=== PATIENT | male | born 1935 | race Caucasian/White ===

== ENCOUNTER 2016-10-21 08:24 | Outpatient (CLI) | payer MEDICARE, OTHER ==
[~2016-10-21] VITALS: Ht 177.8 cm; Wt 85.9 kg
--- NOTE | ~2016-10-21 | HEMODYNAMI ---
PATIENT:AARON AGRAWAL MEDICAL RECORD: [id number] : 35 LOCATION:D.CAT ADMISSION DATE: 10/21/16 Generatedon:10/21/201610:34 Patient name: AARON AGRAWAL Patient #: [id number] : 1935 Date of study: 10/21/2016 Page: Of Hemodynamic Procedure Report Patient Data Patient Demographics Procedure consent was obtained First Name: AARON Gender: Male Last Name: TANJA : 1935 [facility] Initial: R Age: 81 year(s) Patient #: [id number] Race: SSN: [id number] Additional ID: [id number] Contact details [address]: [address] [place] [address] State: [place] City: [place] Zip code: [address] Past Medical History Allergies Allergen Reaction Date Comments Reported Demerol 10/21/2016 Admission Admission Data Admission Date: 10/21/2016 Admission Time: 8:24 Arrival Date: 10/21/2016 Arrival Time: 10:30 Admit Source: Other Insurance Payor: Medicare Height (in.): 69 BSA: 2.06 (m2) Height (cm.): 175.26 BMI: 29.39 (kg/m2) Weight (lbs.): 199 Weight (kg.): 90.26 Lab Results Lab Result Date: 10/21/2016 Lab Result Time: 0:00 Biochemistry Name Units Result Min Max BUN mg/dl 17 --(---*)-- 7 18 Creatinine mg/dl 0.8 --(-*--)-- 0.6 1.3 CBC Name Units Result Min Max Hemoglobin g/dl 13.8 --(*---)-- 13.5 17.5 Procedure Procedure Types Cath Procedure Diagnostic Procedure LHC LHC w/Coronaries Miscellaneous Procedures Moderate Sedation up to 30 minutes Procedure Description Procedure Date Procedure Date: 10/21/2016 Procedure Start Time: 10:25 Procedure End Time: 10:33 Procedure Staff Name Function Liban Yarbrough MD Performing Physician Any Stark RT Scrub Janice Awan RN Nurse Cara Herrera RT Monitor Sumit Rutledge RT Desk Manager Procedure Data Cath Procedure Fluoroscopy Diagnostic fluoroscopy Total fluoroscopy Time: 1.9 time: 1.9 min min Diagnostic fluoroscopy Total fluoroscopy dose: 484 dose: 484 mGy mGy Contrast Material Contrast Material Type Amount (ml) Isovue 370 79 Entry Location Entry Primary Successful Side Size Upsize Upsize Entry Closure Succes sful Closure Location (Fr) 1 (Fr) 2 (Fr) Remarks Device Remarks Femoral Right 5 Fr Vascade artery Closure System Estimated blood loss: 5 ml Diagnostic catheters Device Type Used For End Catheter Placement Cordis Infinity 5Fr LV Angiography Pigtail catheter Cordis Infinity 5Fr AL2 Left Coronary catheter Angiography Cordis Infinity 5Fr 3DRC Right Coronary catheter Angiography Cordis Infinity 5Fr AR 2 Right Coronary MOD catheter Angiography Procedure Complications No complications Procedure Medications Medication Administration Route Dosage Oxygen NC 2 l/min Lidocaine 2% added to field 20 Heparin Flush Bag added to field 2 bags (1000units/500ml NS) 0.9% NaCl I.V. 100 ml/hr Versed I.V. 1 mg Fentanyl I.V. 50 mcg Versed I.V. 1 mg Fentanyl I.V. 50 mcg Hemodynamics Rest BSA: 2.06 (m2) HGB: 13.8 (g/dl) O2 Consumption: Estimated: 228.37 (ml/min) O2 Co nsumption indexed: Estimated:110.86 (ml/min/m) Heart Rate: 62 (bpm) Pressure Samples Time Site Value (mmHg) Purpose Heart Use Rate(bpm) 10:26 LV 47/14,16 Snapshot 85 Snapshots Pre Cath Intra NCS Post Cath Vital Signs Time Heart Resp SPO2 etCO2 [id number] NIBP (mmHg) Rhythm Pain Sedation Rate (ipm) (%) (mmHg) (mmHg) Status Level (bpm) 9:55:47 63 16 99 0 0 140/76(97) Paced 0 (11) 10(A) , No pain 10:00:05 63 16 100 0 0 134/76(107) Paced 0 (11) 10(A) , No pain 10:04:23 60 17 98 0 0 132/66(86) Paced 0 (11) 10(A) , No pain 10:08:43 59 17 98 0 0 131/60(101) Paced 0 (11) 10(A) , No pain 10:12:55 60 17 98 0 0 125/70(83) Paced 0 (11) 10(A) , No pain 10:17:11 60 16 97 0 0 141/69(82) Paced 0 (11) 10(A) , No pain 10:21:19 60 16 93 0 0 119/76(99) Paced 0 (11) 9(A) , No pain 10:25:29 60 16 94 0 0 125/75(107) Paced 0 (11) 9(A) , No pain 10:29:43 74 15 94 0 0 140/73(98) Paced 0 (11) 9(A) , No pain 10:33:57 70 16 95 0 0 127/79(99) Paced 0 (11) 10(A) , No pain Medications Time Medication Route Dose Verified Delivered Reason Notes Effe ctiveness by by 9:56:57 Oxygen NC 2 Liban Buffie used for l/min Zenon Awan RN procedure 10:06:41 Lidocaine 2% added 20ml Liban Liban for local to vial Zenon Yarbrough MD anesthetic field 10:06:50 Heparin Flush added 2 Liban Liban used for Bag to bags Zenon Yarbrough MD procedure (1000units/500ml field NS) 10:06:59 0.9% NaCl I.V. 100 Liban Buffie Per ml/hr Zenon Awan RN physician 10:16:12 Versed I.V. 1 mg Liban Buffie for Zenon Awan RN sedation 10:16:17 Fentanyl I.V. 50 Liban Buffie for mcg Zenon Awan RN sedation 10:26:00 Versed I.V. 1 mg Liban Buffie for Zenon Awan RN sedation 10:26:04 Fentanyl I.V. 50 Liban Buffie for mcg Zenon Awan RN sedation Procedure Log Time Note 9:40:22 Sumit Rutledge RT(R) sent for patient. Start room use. 9:44:28 Time tracking: Regular hours 9:44:33 Plan of Care:Hemodynamics will remain stable., Cardiac rhythm will remain stable., Comfort level will be maintained., Respiratory function will remain adequate., Patient/ family verbilizes understanding of procedure., Procedure tolerated without complication., Recovers from procedure without complications.. 9:44:39 Patient received from Pre/Post Procedure Room to CCL 1 Alert and oriented. Tansferred to table in Supine position. 9:44:40 Warm blankets applied, and aditya hugger turned on for patient comfort. 9:44:40 Correct patient and procedure confirmed by team. 9:44:41 Signed procedure consent form obtained from patient. 9:44:42 ECG and BP/O2 sat monitors applied to patient. 9:44:43 Full Disclosure recording started 9:54:40 Vital chart was started 9:56:57 Oxygen 2 l/min NC was given by Janice Awan RN; used for procedure; 9:57:03 Baseline sample Acquired. 9:57:11 Rhythm: sinus rhythm 9:57:36 H&P Date Dictated: 10/19/2016 Within 30 days and on chart., H&P Addendum completed by physician on day of procedure. (MUST COMPLETE FOR ALL OUTPATIENTS). 9:57:37 Pre-procedure instructions explained to patient. 9:57:42 Pre-op teaching completed and patient verbalized understanding. 9:57:44 Family in waiting room. 9:57:51 Patient NPO since Midnight. 9:57:58 Patient allergic to Demerol 9:58:03 Is the patient allergic to Iodine/contrast media? No. 9:58:05 Was the patient premedicated? No 9:58:09 Is patient on blood thinner?Yes 9:58:13 ACC The patient was administered the following blood thiners within the last 24 hours: ACCPlavix 9:58:15 Patient diabetic? No. 9:58:18 Previous problem with sedation/anesthesia? No ? 9:58:22 Snore? Yes 9:58:23 Sleep apnea? No 9:58:24 Deviated septum? No 9:58:27 Opens mouth fully? Yes 9:58:28 Sticks out tongue? Yes 9:58:31 Airway obstruction? No ? 9:58:34 Dentures? No ? 9:58:38 Pre procedure: right dorsailis pedis pulse 1+ Palpable, but thready & weak; easily obliterated 9:58:42 Patient pain scale 0/10 ?. 9:58:49 IV patent on arrival in left forearm with 0.9% NaCl at O. 9:59:13 Lab Result : Creatinine 0.8 mg/dl 9:59:13 Lab Result : BUN 17 mg/dl 9:59:13 Lab Result : Hemoglobin 13.8 g/dl 9:59:17 Lab results completed and on chart. 9:59:21 Right groin area was prepped with chlora-prep and draped in sterile fashion 9:59:21 Alarms reviewed by R. N. 9:59:22 Sharps counted by scrub and verified by R.N. 10:03:21 Admit Source: Other 10:03:24 Patient Height : 69 inches 10:03:42 Patient Weight : 199 lbs 10:03:43 Insurance Payor : Medicare 10:03:47 Arrival Date: 10/21/2016 10:30:00 AM 10:06:12 Zero performed for pressure channel P1 10:06:19 Zero performed for pressure channel P1 10:06:41 Lidocaine 2% 20ml vial added to field was given by Liban Yarbrough MD; for local anesthetic; 10:06:50 Heparin Flush Bag (1000units/500ml NS) 2 bags added to field was given by Liban Yarbrough MD; used for procedure; 10:06:59 0.9% NaCl 100 ml/hr I.V. was given by Janice Awan RN; Per physician; 10:07:08 Use device set Femoral Dx 10:07:09 Acist Syringe opened to sterile field. 10:07:10 Bag Decanter opened to sterile field. 10:07:11 Cardinal Cath Pack opened to sterile field. 10:07:12 Terumo 5Fr [place] Sheath opened to sterile field. 10:07:13 St Tariq 260cm J .035 wire opened to sterile field. 10:07:16 Acist Hand Control opened to sterile field. 10:07:17 Acist Manifold opened to sterile field. 10:07:20 Tegaderm 4 x 4 opened to sterile field. 10:13:54 Physician arrived 10:13:55 --------ALL STOP TIME OUT------ 10:13:57 Final Timeout: patient, procedure, and site verified with staff and physician. All members of the team are in agreement. 10:13:59 Right groin site verified by team. 10:14:01 Physical assessment completed. ASA score P 2 - A patient with mild systemic disease as per Liban Yarbrough MD. 10:14:05 Sedation plan: IV Moderate Sedation Versed, Fentanyl 10:16:12 Versed 1 mg I.V. was given by Janice Awan RN; for sedation; 10:16:17 Fentanyl 50 mcg I.V. was given by Janice Awan RN; for sedation; 10:25:21 Procedure started. 10:25:25 Local anesthetic to right femoral artery with Lidocaine 2% by Liban Yarbrough MD.INITIAL ACCESS ONLY 10:25:37 A 5 Fr sheath was inserted into the Right Femoral artery 10:26:00 Versed 1 mg I.V. was given by Janice Awan RN; for sedation; 10:26:04 Fentanyl 50 mcg I.V. was given by Janice Awan RN; for sedation; 10:26:04 A Cordis Infinity 5Fr Pigtail catheter was advanced over the wire and used for LV Angiography. 10:26:22 LV hemodynamics recorded. 10:26:23 LV gram done using ROCA 10:26:27 Injector settings: Ml/sec: 5, Volume: 15, 10:26:35 EF : 25 % 10:26:37 Catheter removed. 10:26:44 A Cordis Infinity 5Fr AL2 catheter was advanced over the wire and used for Left Coronary Angiography. 10:27:40 LCA angiography performed. 10:27:43 Injector settings: Ml/sec: 3, Volume: 6, 10:28:38 Catheter removed. 10:28:44 A Cordis Infinity 5Fr 3DRC catheter was advanced over the wire and used for Right Coronary Angiography. 10:29:36 Catheter removed. 10:29:49 A Cordis Infinity 5Fr AR 2 MOD catheter was advanced over the wire and used for Right Coronary Angiography. 10:30:43 RCA angiography performed. 10:30:47 Injector settings: Ml/sec: 3, Volume: 6, 10:30:50 Catheter removed. 10:31:16 Vascade 5Fr Closure Device opened to sterile field. 10:31:53 Sheath removed intact; hemostasis achieved with Vascade Closure System to the Right Femoral artery. 10:31:55 Procedure ended.(Physican Out) 10:32:13 Fluoroscopy time 01.90 minutes. 10:32:18 Fluoroscopy dose: 484 mGy 10:32:18 Flurop Dose total: 484 10:32:21 Contrast amount:Isovue 370 79ml. 10:32:23 Sharps counted by scrub and verified by R.N. 10:32:24 Insertion/operative site no bleeding no hematoma. 10:32:27 Post-op/insertion site Right Femoral artery dressed using a 4 x 4 and Tegaderm. 10:32:30 Post right femoral artery:stable 10:32:31 Post Procedure Pulses reassessed and unchanged 10:32:34 Post procedure rhythm: unchanged. 10:32:37 Estimated blood loss: 5 ml 10:32:38 Post procedure instruction explained to patient.Patient verbalizes understanding. 10:32:39 Patient needs reinforcement of post procedure teaching. 10:33:04 Procedure type changed to Cath procedure, Diagnostic procedure, LHC, LHC w/Coronaries, Miscellaneous Procedures, Moderate Sedation up to 30 minutes 10:33:06 Procedure and supply charges have been captured, reviewed, submitted and are correct. 10:33:10 Procedure Complication : No complications 10:33:13 Vital chart was stopped 10:33:13 See physician's report for complete and final results. 10:33:16 Report given to Outpatients. 10:33:21 Patient transfered to Outpatients with Stretcher. 10:33:23 Procedure ended. 10:33:23 Full Disclosure recording stopped 10:33:48 End room use (Document Last) Device Usage Item Manufacture Quantity Catalog Number Hospital Part Current Minimal Lot# / Name Charge Number Stock Stock Serial# Code Acist Acist 1 [id number] 262923 [id number] 20 Syringe Medical Systems Inc Bag Microtek 1 2001S 735489 03010 918639 5 Decanter Medical Inc. Cardinal Cardinal 1 [id number] 967252 50490 328804 5 Cath Health Pack Terumo Terumo 1 [id number] 999285 842472 927202 [address] St Tariq 1 [id number] 671764 094431 224306 30 260cm J .035 wire Acist Acist 1 83286 789159 254105 530887 5 Hand Medical Control Systems Inc Acist Acist 1 23310 124174 393288 710463 5 Manifold Medical Systems Inc Tegaderm 3M 1 1626W 696354 796669 736225 5 4 x 4 Cordis Cardinal 1 [id number] 003597 528425 653774 5 Infinity Health 5Fr Pigtail catheter Cordis Cardinal 1 [id number] 134633 002193 634331 15 Infinity Health 5Fr AL2 catheter Cordis Cardinal 1 [id number] 115819 303738 288271 9 [facility] 5Fr 3DRC catheter Cordis Cardinal 1 [id number] 711610 543143 875576 20 [facility] 5Fr AR 2 MOD catheter Vascade Cardiva 1 [id number] 946309 50477 070437 10 5Fr Medical, Closure Inc. Device Signature Audit Clements Stage Time Signature Unsigned Intra-Procedure 10/21/2016 Cara Herrera 10:34:54 AM RT(R) Signatures Monitor : Cara Herrera RT Signature : Date : Time : [place] [id number] [place] [address]
[~2016-10-21 08:24] MED LIST: ALEVE220 MG PO; BAYER CHEWABLE81 MG PO; FLOMAX0.4 MG PO; GARLIC1 CAP PO; MULTI-DAY VITAM1 TAB PO; PLAVIX75 MG PO; PROSCAR5 MG PO; SAW PALMETTO450 MG PO; VITAMIN E400 UNI2 PO; ZOCOR20 MG PO
[2016-10-21] MEDS ORDERED: PLAVIX75 MG PO (08:52)
[2016-10-21 09:01] VITALS: BP 135/66; Ht 177.8 cm; Wt 85.9 kg
[2016-10-21 09:10] LABS: BASOPHILS 0.2 % (0.0-2.0); EOSINOPHILS 1.6 % (0-7); HEMATOCRIT 41.5 % (42.0-54.0); HEMOGLOBIN 13.8 g/dL (13.5-17.5); IMMATURE GRANULOCYTES 0.2 % (0-5); LYMPHOCYTES 21.6 % (15-50); MCH 32.6 pg (26.0-34.0); MCHC 33.3 g/dL (31.0-37.0); MCV 98.1 fL (80.0-100.0); MEAN PLATELET VOLUME 9.5 fL (7.4-10.4); MONOCYTES 12.5 % (2-11); NEUTROPHILS 63.9 % (40-80); PLATELET COUNT 218 10x3/uL (130-400); RBC 4.23 10x6/uL (4.20-6.10); RDW 14.2 % (11.5-14.5); WBC 8.7 10x3/uL (4.8-10.8)
[2016-10-21 09:24] LABS: CALC OSMOLALITY 284 mosm/kg (275-300); CALCIUM 9.3 mg/dL (8.5-10.1); CHLORIDE - SERUM 104 mmol/L (98-107); CREATININE - SERUM 0.8 mg/dL (0.6-1.3); GLUCOSE 95 mg/dL (74-106); POTASSIUM - SERUM 4.2 mmol/L (3.5-5.1); SODIUM 142 mmol/L (136-145); UREA NITROGEN 17 mg/dL (7-18); eGFR NON AFRICAN AMERICAN > 90 mL/min (90-120)
--- NOTE | 2016-10-21 11:00 | NUR ---
1100 HR PACED 60 BP 125/64 CHEST PAIN DENIED. 5 FR VASCADE R/GROIN CDI NO BLEEDING NO HEMATOMA NOTED TOLERATING ORAL FLUIDS WITH NAUSEA DENIED. INSTRUCTED PATIENT TO KEEP HEAD FLAT ON PILLOW WITH RLE STRAIGHT
--- NOTE | 2016-10-21 11:34 | NUR ---
VSS WITH 5 FR VASCADE R/GROIN CDI NO BLEEDING NO HEMATOMA NOTED. INSTRUCTED PATIENT TO KEEP RLE STRAIGHT WITH HEAD FLAT ON PILLOW. DR MARTINEZ AT BEDSIDE
--- NOTE | 2016-10-21 12:05 | NUR ---
HOB ELEVATED, EATING TURKEY TRAY. R GROIN
--- NOTE | 2016-10-21 12:19 | OP ---
PATIENT NAME: AARON AGRAWAL MEDICAL RECORD: [id number] :35 LOCATION:D.CAT ADMISSION DATE: SURGEON: JENNIFFER MARTINEZ MD DATE OF OPERATION: 10/21/2016 PROCEDURES: 1. Left heart catheterization. 2. Selective coronary angiography. 3. Left ventriculogram. INDICATION: Cardiomyopathy, angina. PROCEDURE IN DETAIL: After informed consent was obtained and after detailed explanation of risks, benefits as well as alternative therapies, the patient elected to proceed with angiogram and heart catheterization. The right femoral area was prepped and draped in normal sterile fashion. The right femoral artery was cannulated via modified Seldinger technique with placement of 5-Yakut sheath. All catheters exchanged through this sheath. FINDINGS: Left ventriculogram was performed in the standard 30-degree ROCA view reveals global hypokinesis throughout all segments. Overall ejection fraction markedly reduced over at 25%. SELECTIVE CORONARY ANGIOGRAPHY: 1. Left main is with no significant angiographic disease. 2. Left anterior descending, left circumflex, and right coronary artery are smooth-walled vessels with no angiographic evidence of coronary artery disease. OVERALL IMPRESSION: 1. No angiographic evidence of coronary artery disease. 2. Nonischemic cardiomyopathy, ejection fraction 25%. TRANSINT:[id number] Voice Confirmation ID: [id number] DOCUMENT ID: [id number] JENNIFFER MARTINEZ MD at 1219 CC: [id number] DICTATION DATE: 10/21/16 1034 WET MILLING WHEEL OPERATOR: 10/21/16 1151 REG [facility] [address] [place] [address]
--- NOTE | 2016-10-21 12:25 | NUR ---
PIV REMOVED FROM LEFT ARM WITH DRESSING APPLIED. CHEST PAIN IS DENIED. 5 FR VASCADE R/GROIN CDI NO BLEEDING NO HEMATOMA NOTED PATIENT UP TO GET DRESSED FOR DISCHARGE HOME
[2016-10-21] MEDS ORDERED: COREG 3.1253.125 MG PO (12:33)
[2016-10-21] MEDS ORDERED: LISINOPRIL5 MG PO (12:33)
--- NOTE | 2016-10-21 12:43 | NUR ---
DISCHARGE INSTRUCTIONS GONE OVER WITH PATIENT AND FAMILY LEFT VIA WC TO [facility]ARKING FOR TRANSPORT HOME
== END 2016-10-21 12:49 | disposition home or self-care (01) ==
LOC: D.CATH 08:24
PROVIDERS: Internal Medicine Interventional Cardiology
DX: I42.8 Other cardiomyopathies (principal); I20.9 Angina pectoris, unspecified

== ENCOUNTER 2017-03-18 20:05 | Inpatient (IN) | payer MEDICARE, OTHER ==
[~2017-03-18] VITALS: Ht 177.8 cm; Wt 93.6 kg
[~2017-03-18 20:05] MED LIST changes: +COREG 3.1253.125 MG PO; +LISINOPRIL5 MG PO
[2017-03-18 21:04] LABS: BASOPHILS 0.1 % (0-2); EOSINOPHILS 0.8 % (0-7); HEMATOCRIT 44.5 % (42.0-54.0); HEMOGLOBIN 14.9 g/dL (13.5-17.5); IMMATURE GRANULOCYTES 0.9 % (0-5); LYMPHOCYTES 4.3 % (15-50); MCH 32.7 pg (26.0-34.0); MCHC 33.5 g/dL (31.0-37.0); MCV 97.6 fL (80.0-100.0); MEAN PLATELET VOLUME 9.9 fL (7.4-10.4); MONOCYTES 8.7 % (2-11); NEUTROPHILS 85.2 % (40-80); PLATELET COUNT 205 10x3/uL (130-400); RBC 4.56 10x6/uL (4.20-6.10); RDW 14.1 % (11.5-14.5)
[2017-03-18 21:17] LABS: ALBUMIN 4.4 g/dL (3.4-5.0); ALKALINE PHOSPHATASE 83 U/L (46-116); ALT (SGPT) 21 U/L (10-68); AMYLASE - SERUM 29 U/L (25-115); CALC OSMOLALITY 279 mosm/kg (275-300); CARBON DIOXIDE 29.6 mmol/L (21.0-32.0); CHLORIDE - SERUM 99 mmol/L (98-107); CREATININE - SERUM 0.9 mg/dL (0.6-1.3); GLUCOSE 158 mg/dL (74-106); LIPASE 142 U/L (73-393); PROTEIN - SERUM 8.4 g/dL (6.4-8.2); SODIUM 138 mmol/L (136-145); UREA NITROGEN 16 mg/dL (7-18); eGFR NON AFRICAN AMERICAN 86 mL/min (90-120)
[2017-03-19] MEDS ORDERED: FLOMAX0.4 MG PO (03:09)
[2017-03-19] MEDS ORDERED: BETAPACE 80 MG80 MG PO (03:15)
[2017-03-19] MEDS ORDERED: VITAMIN D31000 UNIT PO (03:17)
[2017-03-19] MEDS ORDERED: FLUTICASONE PRO16 GM NASAL (03:18)
[2017-03-19] MEDS ORDERED: PRIMROSE OIL PO (03:21)
[2017-03-19 03:26] VITALS: BP 124/75; BMI 27.0
--- NOTE | 2017-03-19 03:47 | NUR ---
ASSESSED PT AT THE TIME OF ARRIVAL FROM THE ER. PT IS ALERT AND ORIENTED, ABLE SAMARA VERBALIZE NEEDS. HE IS ALSO ABLE TO GET UP TO THE BATHROOM BUT WAS TOLD TO CALL US FOR CLAMPING OF NG TUBE WHICH IS TO LIS. AFTER ADMISSION ASSESSMENT HE WAS VISITED BY DR HEATH AND HOW HE IS RESTING QUIET WITH NO DISTRESS. BED IS LOW, RAILS UP X'S 1 WITH CALL LIGHT AT HAND AND 'S IN PLACE.
[2017-03-19 04:00] VITALS: BP 124/75
--- NOTE | 2017-03-19 07:30 | NUR ---
PATIENT ALERT IN HIGH CROSS POSITION. RESPIRATIONS EVEN AND UNLABORED. SIDE RAILS UP X2. BED IN LOW POSITION. CALL LIGHT IN REACH.
--- NOTE | 2017-03-19 07:33 | NUR ---
A&O, DENIES NEEDS, BED LOWEST POSITION, CALL LIGHT IN REACH, BED LOWEST POSITION, WILL CONTINUE TO MONITOR
[2017-03-19 08:59] VITALS: BP 130/71
[2017-03-19 11:23] VITALS: BP 116/68
[2017-03-19 14:37] LABS: APPEARANCE TURBID (CLEAR); BILIRUBIN NEGATIVE (NEGATIVE); COLOR YELLOW (YELLOW); GLUCOSE NEGATIVE (NEGATIVE); KETONE NEGATIVE (NEGATIVE); LEUKOCYTE ESTERASE 2+ (NEGATIVE); NITRITE POSITIVE (NEGATIVE); PROTEIN 2+ mg/dL (NEGATIVE); SPECIFIC GRAVITY 1.015 (1.005-1.020); UROBILINOGEN NORMAL (NORMAL)
[2017-03-19 14:40] LABS: BACTERIA MANY /hpf (NONE SEEN); EPITHELIAL CELLS 0-5 /hpf (0-5); WHITE CELLS - URINE >50 /hpf (0-5)
[2017-03-19 15:11] VITALS: BP 127/78
[2017-03-19 19:00] VITALS: BP 127/77
[2017-03-20 04:00] VITALS: BP 132/79
[2017-03-20 05:48] LABS: BASOPHILS 0 % (0-2); EOSINOPHILS 0 % (0-7); HEMATOCRIT 44.6 % (42.0-54.0); HEMOGLOBIN 14.7 g/dL (13.5-17.5); IMMATURE GRANULOCYTES 0.3 % (0-5); LYMPHOCYTES 13.9 % (15-50); MCH 32.9 pg (26.0-34.0); MONOCYTES 9.4 % (2-11); NEUTROPHILS 76.4 % (40-80); RBC 4.47 10x6/uL (4.20-6.10); RDW 14.6 % (11.5-14.5)
[2017-03-20 05:49] LABS: WBC 10.2 10x3/uL (4.8-10.8)
[2017-03-20 05:50] LABS: MCV 99.8 fL (80.0-100.0); PLATELET COUNT 251 10x3/uL (130-400)
[2017-03-20 06:08] LABS: ALBUMIN 3.5 g/dL (3.4-5.0); ALKALINE PHOSPHATASE 58 U/L (46-116); ALT (SGPT) 18 U/L (10-68); CALC OSMOLALITY 292 mosm/kg (275-300); CALCIUM 9.4 mg/dL (8.5-10.1); CARBON DIOXIDE 32.4 mmol/L (21.0-32.0); CHLORIDE - SERUM 103 mmol/L (98-107); CREATININE - SERUM 0.9 mg/dL (0.6-1.3); GLUCOSE 152 mg/dL (74-106); POTASSIUM - SERUM 3.5 mmol/L (3.5-5.1); PROTEIN - SERUM 7.4 g/dL (6.4-8.2); SODIUM 144 mmol/L (136-145); eGFR NON AFRICAN AMERICAN 86 mL/min (90-120)
[2017-03-20 06:09] LABS: UREA NITROGEN 22 mg/dL (7-18)
--- NOTE | 2017-03-20 07:20 | NUR ---
RESTING QUIETLY IN BED WITH EYES CLOSED. RESP EVEN,NONLABORED. NG TO LIS. O2 2L NC IN USE.
[2017-03-20 07:29] VITALS: BP 116/48
--- NOTE | 2017-03-20 08:25 | NUR ---
OFF FLOOR TO XRAY VIA WC.
--- NOTE | 2017-03-20 09:30 | NUR ---
ASSESSMENT COMPLETE. IV TO R HAND PATENT. NS INFUSING AT 150 CC/HR VIA PUMP. NG TO LIS. O2 2L NC IN USE. KIRKLAND PATENT DRAINING YELLOW URINE.
--- NOTE | 2017-03-20 10:20 | NUR ---
COMPLAINING OF NAUSEA. ZOFRAN GIVEN IVP. NG CLAMPED WHILE XRAYS BEING PERFORMED.
[2017-03-20 11:04] VITALS: Ht 177.8 cm; Wt 93.6 kg
[2017-03-20 11:34] VITALS: BP 164/82
--- NOTE | 2017-03-20 14:41 | NUR ---
REPORTS VOMITING SMALL AMOUNT. RADIOLOGY NOTIFIED.
[2017-03-20 15:19] VITALS: BP 133/75
--- NOTE | 2017-03-20 17:35 | NUR ---
PUBLIC SAFETY TELECOMMUNICATOR MORPHINE 1-10-10 SETUP FOR PAIN CONTROL. VISITING WITH FAMILY.
[2017-03-20 20:56] VITALS: BP 156/72
[2017-03-21] VITALS (16 sets, daily range): BP systolic 96–135; BP diastolic 37–94
--- NOTE | 2017-03-21 07:30 | NUR ---
ASSESSMENT COMPLETE. IV TO R HAND PATENT. NS INFUSING AT 150 CC/HR VIA PUMP. TRAVEL MANAGER MORPHINE 1-10-10 IN USE FOR PAIN CONTROL. NG TUBE CLAMPED. O2 2L NC IN USE. KIRKLAND PATENT DRAINING YELLOW URINE. SURGERY TODAY
--- NOTE | 2017-03-21 09:25 | NUR ---
OFF FLOOR TO OR VIA BED. FAMILY TO WAITING ROOM.
--- NOTE | 2017-03-21 15:18 | NUR ---
1500 PT ADMITTED IN TO THE ICU VIA BED FROM POST OP EXPORATORY LAP.. PT IS AWAKE AND ALERT.. NGT IN PLACE AND PLACED TO LIWS DARK BROWN DRAINAGE IN THE CANNISTER.. PT ARRIVED ON 15 L OXIMIZER SAT IS 98% AND THE FIO2 DECREASED.. AFTER TITRATION PT CHANGED TO NASAL CANNULA AT 2 LITERS AND SAT IS 95%.. THERE IS A MID ABDOMINAL DRESSING IN PLACE AND IT IS WITH BRIGHT RED BLOOD EDGES ARE MARKED .. PIV RIGHT HAND AND IV FLUID IS CHANGED TO NS AT 125 WITH THE EDITING INTERN DILAUDID AT 0.2 Q 10 MIN NO LOCKOUT.. 1510 FAMILY IN TO SEE PT AND UPDATE GIVEN.. 1515 DR HEATH IN TO SRE PT AND SPOKE WITH THE FAMILY AT THE BEDSIDE. 1530 FAMILY GONE FROM BEDSIDE AND PT INSTRUCTED ON EDITING INTERN USE .. PT STATES HE IS NOT HAVING PAIN HE IS JUST THIRSTY.. DR HEATH DID OK FOR ICE CHIPS..
[2017-03-21 15:49] LABS: ANION GAP 10.5 mmol/L (8-16); CALCIUM 8.6 mg/dL (8.5-10.1); CREATININE - SERUM 1.1 mg/dL (0.6-1.3); POTASSIUM - SERUM 3.5 mmol/L (3.5-5.1)
--- NOTE | 2017-03-21 19:03 | NUR ---
1600 ICE CHIPS TAKEN PT IS WITHOUT C/O AT THIS TIME... 1730 I AND O DONE.. 1800 FAMILY IN TO SEE PT.. UPDATE IS GIVEN..
--- NOTE | 2017-03-21 19:30 | NUR ---
REPORT REC'D AND CARE ASSUMED, REC'D PT RESTING IN BED EYES CLOSED, AWAKENS TO VERBAL STIMULI, ORIENTED X 4, O2 @ 2 LITERS VIA NC, RIGHT FOREARM PIV SALINE LOCKED, LEFT GROIN SHEATH WITH BLOOD NOTED ON DRSG, NO HEMATOMA OR FURTHER BLEEDING NOTED, NS @ 10CC, TPA INFUSING @ 10CC/HR AND HEPARIN @ 500 UNITS/HR INFUSING VIA SHEATH, KIRKLAND PATENT DRAINING YELLOW URINE, BILAT FEET WARM TO TOUCH, DORSALIS PEDIS PULSE FELT TO LEFT FOOT, POSTERIOR TIBIAL DOPPLERED, PT DENIES PAIN OR OTHER NEEDS, SR UP X 2, CALL LIGHT IN REACH.
--- NOTE | 2017-03-21 19:45 | NUR ---
REC'D PT RESTING IN BED WATCHING TV, O2 @ 2 LITERS VIA NC, AWAKE, ALERT, AND CONVERSANT, ORIENTED X 4, RIGHT NARE NGT SECURED WITH TASIA, PLACEMENT VERIFIED VIA SM AIR BOLUS AUSCULTATED OVER EPIGASTRIM, NGT TO LIWS WITH CLEAR TO BROWN DRAINAGE NOTED, RIGHT HAND PIV WITH NS @ 125CC/HR, NO REDNESS OR EDEMA NOTED, MIDLINE ABD DRSG WITH BLOODY DRAINAGE AT POSTERIOR END OF DRSG, BS ABSENT, ABD TENDER, KIRKLAND PATENT DRAINING CONCENTRATED URINE, BILAT SCD'S INTACT AND ON, DILAUDID SPORTS ACTIVITIES FOUL JUDGE CONNECTED TO RIGHT HAND 0.2MG Q10MIN WITH NO LOCKOUT, PT REPORTS ONLY PUSHING SPORTS ACTIVITIES FOUL JUDGE EVERY NOW AND THEN, STATES PAIN " IS REALLY NOT TO BAD", PT ENCOURAGED TO USE SPORTS ACTIVITIES FOUL JUDGE SO THAT PAIN DOES NOT GET AHEAD OF HIM, PT VERBALIZES UNDERSTANDING, SR UP X 2, CALL LIGHT IN REACH.
--- NOTE | 2017-03-21 20:00 | NUR ---
PT REPOSITIONED UP IN BED FOR COMFORT, USING DILAUDID FUSION OPERATOR NEEDED.
--- NOTE | 2017-03-21 21:30 | NUR ---
NO VISITORS IN AT THIS TIME, PT'S DAUGHTER CALLED AND TRANSFERRED INTO PT'S ROOM TO SPEAK WITH PT.
--- NOTE | 2017-03-21 22:00 | NUR ---
ICE CHIPS PROVIDED ON REQUEST, PT DENIES NAUSEA OR PAIN, ABDOMINAL DRSG REINFORCED, GOWN CHANGED, AND PILLOW PROVIDED FOR SPLINTING WHEN PT COUGHS, PT DENIES FUTHER NEEDS, WILL MONITOR FOR CHANGES.
--- NOTE | 2017-03-21 23:30 | NUR ---
REASSESSMENT COMPLETE, PT REQUESTING KLEENEX, TISSUE PROVIDED, SMALL CUP OF ICE CHIPS PROVIDED ON REQUEST, BP STABLE WILL MONITOR FOR CHANGES.
[2017-03-22] VITALS (24 sets, daily range): BP systolic 102–135; BP diastolic 60–98
--- NOTE | 2017-03-22 01:00 | NUR ---
PT RESTING IN BED EYES CLOSED, RESP EVEN AND UNLABORED, VSS.
--- NOTE | 2017-03-22 01:45 | NUR ---
PT FOUND STANDING AT BS WITH NGT, IV, AND ALL MONITORING EQUIPMENT REMOVED, DISORIENTED TO TIME AND PLACE, ATTEMPTED TO REORIENT AT THIS TIME, PT ASSISTED BACK TO BED, ABD DRSG WITH BLOODY DRAINAGE NOTED, DRSG REMOVED AND ERICH REMAIN INTACT, REDRESSED WITH ABD PAD AND BORDERED GAUZE, 20 GAUGE RESITED X 1 ATTEMPT TO RIGHT FOREARM, NS AND DILAUDID TRADESHOW WORKER RESUMED, BATH AND LINEN CHANGE PROVIDED, PT REQUESTING ICE WATER, REMINDED PT HE REMOVED NGT AND WOULD HAVE TO SPEAK TO MD FIRST, VERBALIZES UNDERSTANDING, BED ALARM ON, SR UP X 2, VISIBLE TO NURSES STATION.
--- NOTE | 2017-03-22 02:25 | NUR ---
DR. HEATH PAGENatan
--- NOTE | 2017-03-22 02:40 | NUR ---
DR. HEATH INFORMED OF EVENTS, ORDERS REC'D TO LEAVE NGT OUT AND CONTINUE ICE CHIPS ONLY.
--- NOTE | 2017-03-22 03:00 | NUR ---
PT RESTING EYES CLOSED, RESP EVEN AND UNLABORED, VSS, WILL CONT TO MONITOR CLOSELY FOR CHANGES.
--- NOTE | 2017-03-22 03:30 | NUR ---
PT RESTING QUIETLY IN BED EATING ICE CHIPS, MORE ALERT AT THIS TIME, VSS, WILL CONT TO MONITOR CLOSELY FOR CHANGES.
--- NOTE | 2017-03-22 04:15 | NUR ---
LAB AT FOR AM LAB DRAW
[2017-03-22 04:38] LABS: BASOPHILS 0.1 % (0-2); EOSINOPHILS 0 % (0-7); HEMATOCRIT 44.6 % (42.0-54.0); HEMOGLOBIN 13.8 g/dL (13.5-17.5); IMMATURE GRANULOCYTES 0.3 % (0-5); LYMPHOCYTES 10.2 % (15-50); MCH 32.2 pg (26.0-34.0); MCHC 30.9 g/dL (31.0-37.0); MEAN PLATELET VOLUME 10.6 fL (7.4-10.4); MONOCYTES 11.6 % (2-11); NEUTROPHILS 77.8 % (40-80); PLATELET COUNT 260 10x3/uL (130-400); RBC 4.28 10x6/uL (4.20-6.10); RDW 14.8 % (11.5-14.5)
[2017-03-22 04:41] LABS: MCV 104.2 fL (80.0-100.0); WBC 13.4 10x3/uL (4.8-10.8)
[2017-03-22 05:04] LABS: ALBUMIN 3.1 g/dL (3.4-5.0); ANION GAP 11.7 mmol/L (8-16); BILIRUBIN - TOTAL 0.63 mg/dL (0.2-1.3); CALCIUM 8.5 mg/dL (8.5-10.1); CARBON DIOXIDE 33.9 mmol/L (21.0-32.0); MAGNESIUM - SERUM 2.2 mg/dL (1.8-2.4); PHOSPHOROUS 3.1 mg/dL (2.5-4.9); POTASSIUM - SERUM 3.6 mmol/L (3.5-5.1); PRE-ALBUMIN 16.8 mg/dL (18.0-35.7); PROTEIN - SERUM 6.8 g/dL (6.4-8.2); TROPONIN-I 0.018 ng/mL (0.000-0.060)
[2017-03-22 05:07] LABS: CREATININE - SERUM 1.4 mg/dL (0.6-1.3)
--- NOTE | 2017-03-22 06:20 | NUR ---
NO VISITORS IN AT THIS TIME, PT DISORIENTED TO PLACE, REORIENTED @ THIS TIME, REQUESTING COFFEE, EXPLAINED TO PT HE COULD HAVE ICE CHIPS ONLY, PT VERBALIZES UNDERSTANDING, WILL CONT TO MONITOR FOR CHANGES.
--- NOTE | 2017-03-22 09:55 | NUR ---
NUTRITION MONITORING & EVAL CHART REVIEWED. PT REMAINS NPO IN ICU. WILL MONITOR DIET ADVANCEMENT, PO INTAKE. RD FOLLOWING
--- NOTE | 2017-03-22 12:00 | NUR ---
ABDOMEN DISTENDED. DR HEATH CALLED INSTRUCT TO PLACE NGT LIMS. 1230 14 FINNISH NGT PLACED. 500 CC CLEAR LIQUID IN CANISTER. 1300 1100CC OF COFFEE GROUND LIQUID NOTED IN CANISTER AND CHANGED OUT. 1330 1100 CC COFFEE GROUND LIQUID NOTED DR HEATH CALLED. STAT H/H DRAWN. SERIAL H/H ORDER Q 6 HOURS.
--- NOTE | 2017-03-22 15:00 | NUR ---
VISITING WITH NO CO AT TIME.
[2017-03-22 15:17] LABS: HEMATOCRIT 41.3 % (42.0-54.0); HEMOGLOBIN 13.2 g/dL (13.5-17.5)
--- NOTE | 2017-03-22 15:40 | NUR ---
03/22/2017 15:38 DCP: Discharge Planning Patient transferred to ICU postoperatively - some confusion. Will attempt to assess dc plans/needs when family present or when patient improves.
--- NOTE | 2017-03-22 16:30 | NUR ---
DR HEATH HERE ASSESSING INCISION LINE.
[2017-03-22 16:47] LABS: HEMATOCRIT 40.7 % (42.0-54.0); HEMOGLOBIN 12.7 g/dL (13.5-17.5)
--- NOTE | 2017-03-22 18:00 | NUR ---
VOICES NO CO AT TIME. SR UP X 2.
--- NOTE | 2017-03-22 19:40 | NUR ---
REC'D PT SITTING IN BED WATCHING TV, O2 @ 2LITERS VIA NC, AWAKE, ALERT, ORIENTED X 4, RIGHT NARE NGT TO LIWS WITH GREEN DRAINAGE PRESENET, PLACEMENT VERIFIED VIA SM AIR BOLUS AUSCULTATED OVER EPIGASTRIM, ABD DISTENDED AND TENDER, MIDLINE DRSG CDI, RIGHT FOREARM PIV WITH NS @ 125CC/HR, PROTONIX @ 10CC/HR AND DILAUDID GENERAL HOUSE WORKER 0.2MG Q10MIN WITH NO LOCKOUT, PT DENIES PAIN AT THIS TIME, KIRKLAND PATENT DRAINING CONCENTRATED URINE, BILAT SCD'S INTACT AND ON, SR UP X 2, BED IN LOW POSITION, CALL LIGHT AND GENERAL HOUSE WORKER BUTTON IN REACH.
--- NOTE | 2017-03-22 20:00 | NUR ---
PT REQUESTING ICE, ICE CHIPS PROVIDED, ASSISTED PT TO POSITION FOR COMFORT IN BED, PLUGGED IN PT'S CELL PHONE FOR HIM, DENIES FURTHER NEEDS.
--- NOTE | 2017-03-22 21:00 | NUR ---
NO VISITORS IN AT THIS TIME.
[2017-03-22 22:33] LABS: HEMATOCRIT 38.7 % (42.0-54.0); HEMOGLOBIN 12.1 g/dL (13.5-17.5)
--- NOTE | 2017-03-22 23:08 | NUR ---
REASSESSMENT COMPLETED, PT RESTING WITH COOL CLOTH OVER EYES, RESP EVEN AND UNLABORED, VSS, WILL MONITOR CLOSELY FOR CHANGES, VISIBLE TO NURSES STATION.
[2017-03-23] VITALS (23 sets, daily range): BP systolic 96–130; BP diastolic 49–88
--- NOTE | 2017-03-23 01:00 | NUR ---
PT RESTING IN BED EYES CLOSED, RESP EVEN AND UNLABORED, VSS, CM-V PACED, NO DISTRESS NOTED, WILL CONT TO MONITOR FOR CHANGES.
--- NOTE | 2017-03-23 03:30 | NUR ---
REASSESSMENT COMPLETED, PT RESTING QUIETLY IN BED WATCHING TV AND EATING ICE, DENIES NAUSEA OR PAIN, CALL LIGHT AND FIBER OPTICS ENGINEER IN REACH.
[2017-03-23 03:58] LABS: BASOPHILS 0.1 % (0-2); EOSINOPHILS 0.2 % (0-7); HEMOGLOBIN 12.4 g/dL (13.5-17.5); IMMATURE GRANULOCYTES 0.8 % (0-5); LYMPHOCYTES 16.6 % (15-50); MCH 32.1 pg (26.0-34.0); MCV 103.6 fL (80.0-100.0); MONOCYTES 11.2 % (2-11); NEUTROPHILS 71.1 % (40-80); PLATELET COUNT 224 10x3/uL (130-400); RBC 3.86 10x6/uL (4.20-6.10); RDW 14.6 % (11.5-14.5); WBC 11.6 10x3/uL (4.8-10.8)
[2017-03-23 04:27] LABS: ALBUMIN 2.8 g/dL (3.4-5.0); ALKALINE PHOSPHATASE 44 U/L (46-116); CALC OSMOLALITY 303 mosm/kg (275-300); CALCIUM 8.3 mg/dL (8.5-10.1); CARBON DIOXIDE 35.4 mmol/L (21.0-32.0); CHLORIDE - SERUM 109 mmol/L (98-107); GLUCOSE 128 mg/dL (74-106); PROTEIN - SERUM 6.2 g/dL (6.4-8.2); SODIUM 148 mmol/L (136-145); UREA NITROGEN 36 mg/dL (7-18)
[2017-03-23 04:28] LABS: ALT (SGPT) 18 U/L (10-68); eGFR NON AFRICAN AMERICAN 76 mL/min (90-120)
[2017-03-23 04:29] LABS: POTASSIUM - SERUM 2.9 mmol/L (3.5-5.1)
--- NOTE | 2017-03-23 04:57 | NUR ---
AM POTASSIUM 2.9, ELECTROLYTE PROTOCOL ORDERED, 1ST 10MEQ OF 6 BEGUN AT THIS TIME.
--- NOTE | 2017-03-23 06:15 | NUR ---
NO VISITORS IN AT THIS TIME, PT RESTING IN BED EYES CLOSED, RESP EVEN AND UNLABORED, WILL REPORT TO ONCOMING SHIFT
[2017-03-23 10:33] LABS: HEMATOCRIT 39.4 % (42.0-54.0); HEMOGLOBIN 12.4 g/dL (13.5-17.5)
--- NOTE | 2017-03-23 10:58 | NUR ---
* Is the patient Alert and Oriented? Yes 0 * How many steps to enter\exit or inside your home? 0 0 * PCP Dr. Means 0 * Pharmacy [facility] [address] [place] 0 * Preadmission Environment Home Alone 0 * ADLs Independent 0 * List name and contact numbers for known caregivers / representatives who currently or will assist patient after discharge: Friend - Becka Lopez [phone] Friend - César Mcbride [phone] 0 * Additional services required to return to the preadmission environment? No 0 * Can the patient safely return to the preadmission environment? Yes 0 * Has this patient been hospitalized within the prior 30 days at any hospital? No 03/23/2017 10:59 DCP: Discharge Planning Patient Name: AARON AGRAWAL Admission Status: ER Accout number: [id number] Admission Date: 03-19-2017 : 1935 Admission Diagnosis:UNSPECIFIED INTESTINAL OBSTRUCTION Attending: MARSHAL Current LOS: 4 Planned Disposition: Home Primary Insurance: MEDICARE A & B Discharge Planning Comments: CM met with patient to assess dc plans/needs. He is awake, alert & oriented. He states he lives alone & is independent with all ADL's & IADL's. He states he has a good support system of family/friends. He does not use any assistive devices for mobility and has not had home health services in the past. At [place], he states his friend/neighbor Becka Lopez will stay with him if necessary. He is agreeable to home health services if necessary. Case management will follow & assist as needed. Operations Forester: Anay Gtz
--- NOTE | 2017-03-23 15:40 | NUR ---
0800 AM ASSESMENT IS DONE SEE FLOW SHEET FOR FIDNINGS.. PT IS AWAKE AND ALERT THERE IS AN NGT IN THE RIGHT NARE THERE IS NO DRAINAGE IN THE TUBING OR THE CANNISITER ATTEMPT TO READJUST THE NGT.. PT IS REQUESTING ICE CHIPS..KCL RIDER INFUSING 0830 DR CHRISTIANSON IN TO SEE PT.. 0900 [facility] 1000 BATH WITH LINENM CHANGE DONE . PT ASSISTED OOB TO THE CHAIR.. 1100 CONTINUES IN CHAIR.. 1200 VISITOR AT THE BEDSIDE.. 1330 PT HAS PULLED OUT HIS NGT STATING HE DIDNT WANT IT ANYMORE.. TUBE NOT REPLACED AT THIS TIME.. 1500 FAMILY IN TO SEE PT...
[2017-03-23 16:13] LABS: HEMATOCRIT 35.8 % (42.0-54.0); HEMOGLOBIN 11.5 g/dL (13.5-17.5)
--- NOTE | 2017-03-23 17:57 | NUR ---
1600 FAMILY GONE FROM BEDSIDE.. 1700 [facility] RIDER INITIATED FOR POTASIUM LEVEL OF 3.4 DRAWN THIS PM
--- NOTE | 2017-03-23 19:10 | NUR ---
REPORT RECIEVED. ASSESSMENT COMPLETE PER FLOW SHEET. VSS. GIVEN ICE CHIPS PER REQUEST. WILL CONTINUE TO MONITOR
[2017-03-23 22:06] LABS: HEMATOCRIT 35.2 % (42.0-54.0); HEMOGLOBIN 11.3 g/dL (13.5-17.5)
--- NOTE | 2017-03-23 23:10 | NUR ---
REASSESSMENT COMPLETE PER FLOW SHEET. VSS. WILL CONTINUE TO MONITOR
[2017-03-24] VITALS (12 sets, daily range): BP systolic 101–128; BP diastolic 63–81
--- NOTE | 2017-03-24 00:50 | NUR ---
k+ REVIEWED NO INTERVENTION NEEDED AT THIS TIME. VSS. WILL CONTINUE TO MONITOR
--- NOTE | 2017-03-24 03:06 | NUR ---
REASSESSMENT COMPLETE PER FLOW SHEET. VSS. NO NEW CHANGES WILL CONTINUE TO MONTIOR
[2017-03-24 04:19] LABS: BASOPHILS 0.1 % (0-2); EOSINOPHILS 1.9 % (0-7); HEMATOCRIT 36.6 % (42.0-54.0); HEMOGLOBIN 11.9 g/dL (13.5-17.5); IMMATURE GRANULOCYTES 0.7 % (0-5); LYMPHOCYTES 16.1 % (15-50); MCH 32.7 pg (26.0-34.0); MCHC 32.5 g/dL (31.0-37.0); MEAN PLATELET VOLUME 10.7 fL (7.4-10.4); MONOCYTES 10.3 % (2-11); NEUTROPHILS 70.9 % (40-80); PLATELET COUNT 225 10x3/uL (130-400); RBC 3.64 10x6/uL (4.20-6.10); RDW 14.2 % (11.5-14.5); WBC 12.9 10x3/uL (4.8-10.8)
[2017-03-24 04:20] LABS: MCV 100.5 fL (80.0-100.0)
[2017-03-24 04:22] LABS: CALCIUM 8.4 mg/dL (8.5-10.1); CARBON DIOXIDE 28.7 mmol/L (21.0-32.0); CHLORIDE - SERUM 109 mmol/L (98-107); GLUCOSE 115 mg/dL (74-106); POTASSIUM - SERUM 4.2 mmol/L (3.5-5.1); SODIUM 145 mmol/L (136-145)
[2017-03-24 04:24] LABS: CALC OSMOLALITY 293 mosm/kg (275-300); CREATININE - SERUM 0.7 mg/dL (0.6-1.3); UREA NITROGEN 23 mg/dL (7-18); eGFR NON AFRICAN AMERICAN > 90 mL/min (90-120)
--- NOTE | 2017-03-24 08:22 | NUR ---
0715-RECIEVED PER FLOW SHEET-ALERT AND ORIENTED-ABLE TO STATE LOCATION DATE AND EVENTS-READING CURRENT NEWSPAPER-AWARE HE TOOK NGT TUBE OUT-STATED DID NOT WANT IT ANY MORE-REFUSING TO PLACE BACK-NOTED AUDIBLE BOWEL SOUNDS--ALEKSN
--- NOTE | 2017-03-24 10:19 | NUR ---
NUTRITION MONITORING & EVAL CHART REVIEWED. REMAINS NPO AWAITING BOWEL FUNCTION. POSSIBLE TX TO FLOOR. RD FOLLOWING
--- NOTE | 2017-03-24 10:48 | NUR ---
AMBULATED IN UNIT WITH PHYSIACAL THERAPY-KBRN PLACED ON BEDSDIE COMMODE-KBRN
--- NOTE | 2017-03-24 11:48 | NUR ---
PATIENT IS SITTING UP IN CHAIR WITHOUT ANY DISTRESS NOTED. CALL LIGHT WITH IN REACH.
--- NOTE | 2017-03-24 12:02 | NUR ---
PATIENT WANTED BACK IN BED. TRANSFERRED WITH MINIMAL ASSIST. PATIENT DENIES PAIN AT THIS TIME. CALL LIGHT WITHIN REACH, BED IN LOW POSISTION.
--- NOTE | 2017-03-24 12:20 | NUR ---
DR. HEATH HERE IN TO SEE PATIENT. DIET ORDER AND TRANSFER ORDERS RECEIVED.
--- NOTE | 2017-03-24 13:41 | NUR ---
PHYSICAL THERAPY HERE TO WALK PATIENT, AND HE IS TOLERATING IT WELL.
--- NOTE | 2017-03-24 14:13 | NUR ---
REPORT CALLED TO MED SURG. PATIENT BEING TRANSFERRED TO ROOM 2216.
--- NOTE | 2017-03-24 14:45 | NUR ---
RECEIVED TO ROOM 2216 FROM ICU VIA WHEELCHAIR. ALERT AND ORIENTED. CALLED ICU REDARDING PT'S MISSING CELLPHONE RETAIL EVENT ASSISTANT. SY FLORES SAID SHE WOULD CHECK SHE CLEANED THE ROOM.
--- NOTE | 2017-03-24 19:38 | NUR ---
SLEEPING, BREATHING EVEN UNLABORED, CALL LIGHTIN REACH, BED LOWEST POSITION, CALL LIGHT IN REACH, WILL CONTINUE TO MONITOR
--- NOTE | 2017-03-24 22:30 | NUR ---
ASSESSED, PT IS ALERT AND ORIENTED, WATCHING TV. TALKING WITH STAFF ABOUT HIS CONDITION. NO DISTRESS NOTED. THE BED IS LOW, RAILS UP X'S 2 WITH THE CALL LIGHT AT HAND.
[2017-03-25] VITALS: BP 115/69
--- NOTE | 2017-03-25 03:47 | NUR ---
UNCOMFORTABLE, PT GOT UP TO CHAIR, FEELS BETTER, BED LINENS CHANGED, CALL LIGHT IN REACH, WILL CONTINUE TO MONITOR
[2017-03-25 04:00] VITALS: BP 121/68
[2017-03-25 05:52] LABS: BASOPHILS 0.1 % (0-2); EOSINOPHILS 1.6 % (0-7); HEMATOCRIT 39.2 % (42.0-54.0); HEMOGLOBIN 12.7 g/dL (13.5-17.5); IMMATURE GRANULOCYTES 0.9 % (0-5); LYMPHOCYTES 14.3 % (15-50); MCH 32.2 pg (26.0-34.0); MCHC 32.4 g/dL (31.0-37.0); MCV 99.2 fL (80.0-100.0); MEAN PLATELET VOLUME 10.4 fL (7.4-10.4); MONOCYTES 10.7 % (2-11); NEUTROPHILS 72.4 % (40-80); RBC 3.95 10x6/uL (4.20-6.10); RDW 14.1 % (11.5-14.5); WBC 11.7 10x3/uL (4.8-10.8)
[2017-03-25 05:54] LABS: PLATELET COUNT 287 10x3/uL (130-400)
[2017-03-25 06:17] LABS: CALC OSMOLALITY 283 mosm/kg (275-300); CALCIUM 8.8 mg/dL (8.5-10.1); CARBON DIOXIDE 25.6 mmol/L (21.0-32.0); CHLORIDE - SERUM 105 mmol/L (98-107); CREATININE - SERUM 0.8 mg/dL (0.6-1.3); GLUCOSE 148 mg/dL (74-106); POTASSIUM - SERUM 3.3 mmol/L (3.5-5.1); SODIUM 140 mmol/L (136-145); UREA NITROGEN 18 mg/dL (7-18); eGFR NON AFRICAN AMERICAN > 90 mL/min (90-120)
--- NOTE | 2017-03-25 07:45 | NUR ---
ASSESSMENT COMPLETE. IV TO R FA PATENT. D5 1/2 INFUSING AT 125 CC/HR AND PROTONIX INFUSING AT 10 CC/HR INFUSING VIA PUMP. PROGRAM ENGINEER DILAUDID 0.2-10-0 IN USE FOR PAIN CONTROL. DRESSING TO MIDLINE ABDOMEN AND BANDAIDS X 2 TO LEFT ABDOMEN INTACT. KIRKLAND PATENT DRAINING YELLOW URINE. REPORTS PASSING FLATUS YESTERDAY.
--- NOTE | 2017-03-25 07:50 | NUR ---
SWELLING NOTED TO R FACE.
[2017-03-25 08:23] VITALS: BP 117/66
--- NOTE | 2017-03-25 10:30 | NUR ---
IV TO R FA LEAKING. IV REMOVED. CATHETER TIP INTACT. IV RESITED TO R FA WITH 22 GUAGE X 1 ATTEMPT.
[2017-03-25 12:01] VITALS: BP 114/62
--- NOTE | 2017-03-25 15:00 | NUR ---
IV TUBING BECAME DISCONNECTED FROM PATIENT AND WAS LAYING IN FLOOR. IV TUBING CHANGED. VISITING WITH FAMILY AT BEDSIDE.
--- NOTE | 2017-03-25 17:55 | NUR ---
RESTING QUIETLY IN BED WITH EYES CLOSED. RESP EVEN,NONLABORED.
--- NOTE | 2017-03-25 19:40 | NUR ---
ALERT/AWAKE TALKING TO VISITORS. IV IN R FA INTACT WITH IVF INFUSING. MIDLINE ABD DRSG C/D/I. DENIES PAIN OR ANY NEEDS. HAS VISUAL DESIGN LEAD WITH DILAUDID FOR PAIN CONTROL. HAS CALL LIGHT AND BEDSIDE TABLE WITH PERSONAL ITEMS IN REACH.
[2017-03-25 20:00] VITALS: BP 94/73
[2017-03-26] VITALS: BP 102/77
--- NOTE | 2017-03-26 01:12 | NUR ---
RESTING WITH EYES CLOSED. RR EVEN U/L. NO S/S OF DISCOMFORT. SCD'S ARE ON.
[2017-03-26 04:00] VITALS: BP 110/69
--- NOTE | 2017-03-26 05:30 | NUR ---
REQUESTED WARM WASHCLOTH TO WASH HIS FACE. RATES PAIN LEVEL AT 6 ON NUMBER SCALE OF ABD. C/O NAUSEA AND BELCHING.
--- NOTE | 2017-03-26 07:10 | NUR ---
CALL LIGHT IN REACH. NO NEEDS VOICED AT THIS TIME. CALL LIGHT IN REACH.
[2017-03-26 08:24] VITALS: BP 120/60
--- NOTE | 2017-03-26 09:45 | NUR ---
ASSESSMENT COMPLETE. IV TO R FA PATENT. D5 1/2 INFUSING AT 125 CC/HR VIA PUMP. PROTONIX INFUSINGA AT 10 CC/HR VIA PUMP. CARPET SEWING MACHINE OPERATOR DILAUDID 0.2-10-0 IN USE FOR PAIN CONTROL. DRESSING TO MIDLINE C/D/I. BANDDAIDS X 2 TO L ABDOMEN. KIRKLAND PATENT DRAINING SANDRA COLORED URINE. SCD'S IN USE TO BILAT LEGS. REPORTS PASSING FLATUS AND HAVING SMALL BM THIS AM.
--- NOTE | 2017-03-26 11:00 | NUR ---
RESTING QUIETLY IN BED.
--- NOTE | 2017-03-26 11:25 | NUR ---
DENIES NEEDS AT THIS TIME. CALL LIGHT IN REACH.
[2017-03-26 12:57] VITALS: BP 92/65
--- NOTE | 2017-03-26 13:00 | NUR ---
RESTING WITH EYES CLOSED. RESP EVEN AND UNLABORED. CALL LIGHT IN REACH.
--- NOTE | 2017-03-26 14:31 | NUR ---
MEDS ADMINISTERED PER ORDER. CALL LIGHT IN REACH.
[2017-03-26 15:58] VITALS: BP 126/72
--- NOTE | 2017-03-26 16:00 | NUR ---
RESTING QUIELTY IN BED WITH EYES CLOSED. RESP EVEN,NONLABORED.
--- NOTE | 2017-03-26 16:59 | NUR ---
COREG PO. NO NEEDS VOICED. CALL LIGHT IN REACH.
[2017-03-26 20:00] VITALS: BP 102/60
--- NOTE | 2017-03-26 21:29 | NUR ---
REC'D LYING IN BED. ALERT AND ORIENTED X3. NO DISTRESS NOTED. DENIED PAIN AT THIS TIME. DENIED FURTHER NEEDS AT THIS TIME. INSTRUCTED TO CALL IF NEEDED ANYTHING. WILL ADMIN PM/AM MEDS PRESCRIBED. WILL CONT TO MONITER. BED LOW, LOCKED, CALL LIGHT IN REACH.
[2017-03-27] VITALS: BP 132/73
--- NOTE | 2017-03-27 03:31 | NUR ---
RESTING COMFORTABLY. NO DISTRESS NOTED. PLACED 2L OF O2 ON. SATS WERE 88, SATS CAME UP TO 93 WITH O2. NOTIFIED RESPIRATORY. WILL CONT TO MONITOR.
--- NOTE | 2017-03-27 03:53 | NUR ---
EYES CLOSED RESPIRATIONS WITH EASE AND UNLABORED.
[2017-03-27 04:00] VITALS: BP 106/53
--- NOTE | 2017-03-27 07:40 | NUR ---
ASSESSMENT COMPLETE. IV TO R FA PATENT. D5 1/2 INFUSING AT 75 CC/HR VIA PUMP. SUPERVISOR SEAMING DILAUDID 0.2-10-0 IN USE FOR PAIN CONTROL. O2 2L NC IN USE. KIRKLAND PATENT DRAINING SANDRA COLORED URINE. DRESSING INTACT TO ABDOMINAL INCISION. SCD'S IN USE TO BILAT LEGS.
[2017-03-27 08:09] VITALS: BP 115/55
--- NOTE | 2017-03-27 12:00 | NUR ---
SITTING UP IN CHAIR. DENIES ANY NEEDS AT PRESENT.
[2017-03-27 12:10] VITALS: BP 127/55
[2017-03-27 15:51] VITALS: BP 104/55
--- NOTE | 2017-03-27 16:00 | NUR ---
VISITING WITH COMPANY. DENIES ANY NEEDS AT PRESENT.
[2017-03-27 18:09] LABS: AEROBE ID Final report (())
[2017-03-27 18:09] LABS: AEROBE ID Final report (())
[2017-03-27 20:00] VITALS: BP 108/62
[2017-03-28] VITALS: BP 109/65
[2017-03-28 04:00] VITALS: BP 112/70
[2017-03-28 05:17] LABS: BASOPHILS 0.2 % (0-2); EOSINOPHILS 1.9 % (0-7); HEMATOCRIT 32.3 % (42.0-54.0); HEMOGLOBIN 10.7 g/dL (13.5-17.5); IMMATURE GRANULOCYTES 0.7 % (0-5); LYMPHOCYTES 16.1 % (15-50); MCH 32.4 pg (26.0-34.0); MCHC 33.1 g/dL (31.0-37.0); MCV 97.9 fL (80.0-100.0); MEAN PLATELET VOLUME 9.4 fL (7.4-10.4); MONOCYTES 11.3 % (2-11); NEUTROPHILS 69.8 % (40-80); PLATELET COUNT 294 10x3/uL (130-400); RDW 13.9 % (11.5-14.5); WBC 10.3 10x3/uL (4.8-10.8)
[2017-03-28 05:20] LABS: CALC OSMOLALITY 279 mosm/kg (275-300); CALCIUM 7.4 mg/dL (8.5-10.1); CARBON DIOXIDE 27.1 mmol/L (21.0-32.0); CHLORIDE - SERUM 105 mmol/L (98-107); CREATININE - SERUM 0.8 mg/dL (0.6-1.3); GLUCOSE 109 mg/dL (74-106); POTASSIUM - SERUM 3.5 mmol/L (3.5-5.1); SODIUM 139 mmol/L (136-145); UREA NITROGEN 16 mg/dL (7-18); eGFR NON AFRICAN AMERICAN > 90 mL/min (90-120)
[2017-03-28 08:09] VITALS: BP 121/51
--- NOTE | 2017-03-28 08:44 | NUR ---
AWAKE AND ALERT. OIRENTED X3. NO C/O AT THIS TIME. LUNGS ARE CLEAR BILATERALLY, NO COUGH NOTED. SKIN IS INTACT WITHOUT REDNESS EXCEPT INCISION TO MID ABDOMEN WHICH IS CLEAN AND DRY WITH CLIPS INTACT. SCD'S IN PLACE. IV TO RIGHT FOREARM IS PATNET WITHOUT REDNESS AT INSERTION SITE. PENIS IS NOTED TO BE VERY EDEMATOUS THIS AM. PATIENT REPORTS THIS BEING NEW. KIRKLAND PATENT WITH SOME BLOOD CLOTS NOTED IN CLEAR YELLOW URINE. WILL MONITOR. FL BREAKFAST TRAY SERVED.
[2017-03-28 11:59] VITALS: BP 97/56
--- NOTE | 2017-03-28 12:53 | NUR ---
NUTRITION MONITORING & EVAL CHART REVIEWED, PT VISIT. DIET ADVANCED TO FULL LIQUID. WILL CONTINUE TO MONITOR DIET ADVANCEMENT, TOLERANCE. PT CURRENTLY DECLINES ENSURE. RD FOLLOWING
[2017-03-28 15:19] VITALS: BP 103/59
--- NOTE | 2017-03-28 15:53 | NUR ---
Rehab Note- Acute Rehab Prescreen order received. Visited with the patient. he is very interested in [facility] when ready for discharge from the acute hospital. Stated he lives alone and is very weak, states is doing ok with Physical therapy when ambulating but gets very tired, short winded, and increased weakness and fatigue when ambulating with use of a RW. Thank you for this referral! Yareli Breaux RN Clinical Liaison, [facility],
--- NOTE | 2017-03-28 19:58 | NUR ---
ATE OLNY A FEW BITES OF SUPPER. EVERYTHING TASTE REAL BAD. NO CHANGES NOTED. DENIES NEEDS.
[2017-03-28 20:00] VITALS: BP 94/41
--- NOTE | 2017-03-28 20:00 | NUR ---
PATIENT RESTING IN BED AND DENIES NEEDS AT THIS TIME. BED IN LOWEST POSITION AND CALL LIGHT WITHIN REACH. ENCOURAGED THE PATIENT TO CALL IF HE HAS NEEDS.
[2017-03-29] VITALS: BP 91/51
[2017-03-29 04:00] VITALS: BP 111/55
[2017-03-29 06:16] LABS: BASOPHILS 0.1 % (0-2); EOSINOPHILS 0.8 % (0-7); HEMOGLOBIN 11.5 g/dL (13.5-17.5); IMMATURE GRANULOCYTES 0.9 % (0-5); LYMPHOCYTES 11.2 % (15-50); MCH 31.9 pg (26.0-34.0); MCHC 32.9 g/dL (31.0-37.0); MEAN PLATELET VOLUME 9.6 fL (7.4-10.4); MONOCYTES 8.8 % (2-11); NEUTROPHILS 78.2 % (40-80); RBC 3.61 10x6/uL (4.20-6.10); RDW 13.9 % (11.5-14.5)
[2017-03-29 06:42] LABS: PLATELET COUNT 364 10x3/uL (130-400); WBC 13.7 10x3/uL (4.8-10.8)
[2017-03-29 06:48] LABS: CALCIUM 7.7 mg/dL (8.5-10.1); CARBON DIOXIDE 25.5 mmol/L (21.0-32.0); CHLORIDE - SERUM 103 mmol/L (98-107); CREATININE - SERUM 0.8 mg/dL (0.6-1.3); GLUCOSE 99 mg/dL (74-106); SODIUM 138 mmol/L (136-145); eGFR NON AFRICAN AMERICAN > 90 mL/min (90-120)
[2017-03-29 06:52] LABS: CALC OSMOLALITY 274 mosm/kg (275-300); UREA NITROGEN 10 mg/dL (7-18)
--- NOTE | 2017-03-29 07:20 | NUR ---
REPORT RECEIVED FROM CABLE SPLICING TECHNICIAN NURSE. CALL LIGHT IN REACH.
[2017-03-29 08:07] VITALS: BP 103/45
--- NOTE | 2017-03-29 09:12 | NUR ---
ASSESSMENT COMPLETED. AM MEDS ADMINISTERED EXCEPT FOR BLOOD PRESSURE MEDS. REFUSES SCDs AT THIS TIME. KIRKLAND CLAMPED FOR NOW FOR BLADDER TRAINING. KCL 10 MEW IV PER ELECTROLYTE PROTOCOL. PASSWORD OBTAINED FROM PATIENT AND PLACED IN COMPUTER. IV TUBING CHANGED PER HOSPITAL PROTOCOL. CALL LIGHT IN REACH. WILL CONTINUE WITH PLAN OF CARE.
--- NOTE | 2017-03-29 10:58 | NUR ---
2ND BAG OF KCL INITIATED PER ORDER. CALL LIGHT IN REACH.
[2017-03-29 12:17] VITALS: BP 122/60
[2017-03-29] MEDS ORDERED: BACTRIM DS TABL1 TAB PO (12:47)
[2017-03-29] MEDS ORDERED: AMOXICILLIN875 MG PO (12:47)
--- NOTE | 2017-03-29 12:55 | NUR ---
LYING IN BED,WITHOUT NEEDS.CALL LIGHT IN REACH
--- NOTE | 2017-03-29 14:56 | NUR ---
NOW INFUSING 5TH BAG OF POTASSIUM. WILL FINISH LAST BAG AFTERWARDS.
[2017-03-29 16:14] VITALS: BP 98/48
--- NOTE | 2017-03-29 16:20 | NUR ---
ASSISTED TO BSC AND BACK TO BED PER ENVELOPE SEALING MACHINE OPERATOR.
--- NOTE | 2017-03-29 17:38 | NUR ---
NICOLE BP D/T BP O F98/48
--- NOTE | 2017-03-29 18:02 | NUR ---
REPORT CALLED TO BRYSON VELASQUEZ, IN REHAB.
--- NOTE | 2017-03-29 18:15 | NUR ---
KIRKLAND DC'D WITH THE TIP INTACT.
--- NOTE | 2017-03-29 18:59 | NUR ---
DC'D TO REHAB VIA WC.
== END 2017-03-29 18:59 | DRG 336 ==
LOC: D.ER 20:05 → D.MS 03-19 01:42 → D.ICU 03-19 01:42 → D.MS 03-24 14:42
PROVIDERS: Anesthesiology; Family Medicine; Surgery; ADMIT Family Medicine
PROC: 0D9670Z Drainage of Stomach with Drainage Device, Via Natural or Artificial Opening (ICD-10-PCS; principal; 2017-03-19)
PROC: 0T9B70Z Drainage of Bladder with Drainage Device, Via Natural or Artificial Opening (ICD-10-PCS; 2017-03-19)
PROC: 0WJP0ZZ Inspection of Gastrointestinal Tract, Open Approach (ICD-10-PCS; 2017-03-21)
PROC: 0DN80ZZ Release Small Intestine, Open Approach (ICD-10-PCS; 2017-03-21 08:00)
DX: K56.60 Unspecified intestinal obstruction (principal); K91.3 Postprocedural intestinal obstruction; N39.0 Urinary tract infection, site not specified; Z95.0 Presence of cardiac pacemaker; N50.89 Other specified disorders of the male genital organs; B95.1 Streptococcus, group B, as the cause of diseases classified elsewhere; B95.8 Unspecified staphylococcus as the cause of diseases classified elsewhere

== ENCOUNTER 2017-03-29 17:52 | Inpatient (IN) | payer MEDICARE, OTHER ==
[~2017-03-29] VITALS: Ht 177.8 cm; Wt 92.1 kg
[~2017-03-29 17:52] MED LIST changes: +AMOXICILLIN875 MG PO; +BACTRIM DS TABL1 TAB PO; +BETAPACE 80 MG80 MG PO; +FLUTICASONE PRO16 GM NASAL; +PRIMROSE OIL PO; +VITAMIN D31000 UNIT PO
--- NOTE | 2017-03-29 19:30 | NUR ---
PT IN ROOM, ADMISSION PROCESS UNDERWAY. PT IS PLEASANT AND CONVERSIVE.
[2017-03-29 23:07] VITALS: BP 112/53; BMI 29.2
--- NOTE | 2017-03-30 | NUR ---
AWAKE. DENIES NEEDS.
--- NOTE | 2017-03-30 01:52 | NUR ---
ASSISTED PT TO SIDE OF BED, PT STATED HE THOUGHT HE NEEDED TO VOID, WASN'T ABLE TO VOID. DISCUSSED THE OPTION FOR BLADDER SCAN, PT STATES HE WOULD LIKE TO WAIT. HE STATES HE HAS A HISTORY OF DIFFICULTY URINATION.
--- NOTE | 2017-03-30 03:18 | NUR ---
PT VOIDED PER TOILEL, ASSESSMENT ADDON FOR SKIN - PT HAS SORE ON LEFT EAR LOBE APPROXIMATELY 1 CM X 1 CM SCAB. PT STATES IT WAS FROM WHEN HE WAS IN ICU.
[2017-03-30 06:40] LABS: BASOPHILS 0.1 % (0-2); EOSINOPHILS 0.6 % (0-7); HEMATOCRIT 33.2 % (42.0-54.0); HEMOGLOBIN 11.1 g/dL (13.5-17.5); IMMATURE GRANULOCYTES 0.8 % (0-5); LYMPHOCYTES 11.5 % (15-50); MCH 32.2 pg (26.0-34.0); MCHC 33.4 g/dL (31.0-37.0); MCV 96.2 fL (80.0-100.0); MEAN PLATELET VOLUME 9.2 fL (7.4-10.4); MONOCYTES 8.8 % (2-11); NEUTROPHILS 78.2 % (40-80); PLATELET COUNT 368 10x3/uL (130-400); RBC 3.45 10x6/uL (4.20-6.10); RDW 14.2 % (11.5-14.5)
[2017-03-30 06:55] LABS: CALC OSMOLALITY 275 mosm/kg (275-300); CALCIUM 7.4 mg/dL (8.5-10.1); CARBON DIOXIDE 25.8 mmol/L (21.0-32.0); CHLORIDE - SERUM 105 mmol/L (98-107); CREATININE - SERUM 0.7 mg/dL (0.6-1.3); GLUCOSE 102 mg/dL (74-106); SODIUM 139 mmol/L (136-145); UREA NITROGEN 8 mg/dL (7-18); eGFR NON AFRICAN AMERICAN > 90 mL/min (90-120)
[2017-03-30 06:56] LABS: POTASSIUM - SERUM 3.6 mmol/L (3.5-5.1)
--- NOTE | 2017-03-30 08:00 | NUR ---
EATING BREAKFAST.CL IN REACH.
--- NOTE | 2017-03-30 08:00 | NUR ---
PT IS RESTING IN BED WITH EYES OPEN. ALERT AND ORIENTED X 3. DENIES PAIN OR DISCOMFORT AT THIS TIME. PT STARTED FEEDING SELF BREAKFAST IN BED, THEN STATED HE WAS NOT COMFORTABLE, AND ASKED TO BE ASSISTED UP INTO . UP0N TRANSFER TO HE STATED, I NEED TO GO TO THE BATHROOM NOW. LARGE DIARRHEA BM NOTED. SR'S ARE UP X 3 WHILE IN BED. CALL LIGHT AND BEDSIDE TABLE ARE WITHIN EASY REACH.
--- NOTE | 2017-03-30 08:13 | NUR ---
PATIENT WAS DISCHARGED TO INPATIENT REHAB AT [facility]
[2017-03-30 08:45] VITALS: BP 93/57
--- NOTE | 2017-03-30 09:43 | NUR ---
PT IS PARTICIPATING IN THERAPY AT THIS TIME.
--- NOTE | 2017-03-30 11:59 | NUR ---
PT RESTING IN HIS ROOM AWAITING LUNCH. NO ACUTE DISTRESS NOTED.
--- NOTE | 2017-03-30 14:19 | NUR ---
PT IS PARTICIPATING IN THERAPY AT THIS TIME.
[2017-03-30 14:49] VITALS: Ht 177.8 cm; Wt 92.1 kg
--- NOTE | 2017-03-30 16:35 | NUR ---
PT IS PARTICIPATING IN PT AT THIS TIME.
--- NOTE | 2017-03-30 19:15 | NUR ---
SITTING UP IN W/C AT BEDSIDE. DENIES NEEDS.
[2017-03-30 21:10] VITALS: BP 112/50
--- NOTE | 2017-03-30 21:10 | NUR ---
ASSESSMENT AND HS MEDS COMPLETE. ASSISTED HIM UP TO BR TO URINATE, AND THEN BACK TO BED. DENIES FURTHER NEEDS.
--- NOTE | 2017-03-30 22:20 | NUR ---
RESTING QUIETLY IN BED, EYES CLOSED.
--- NOTE | 2017-03-31 02:15 | NUR ---
RESTING QUIETLY IN BED, EYES CLOSED.
--- NOTE | 2017-03-31 04:40 | NUR ---
IN BED, AWAKE. DENIES NEEDS.
--- NOTE | 2017-03-31 05:50 | NUR ---
IN BED, RESTING QUIETLY. EYES CLOSED.
[2017-03-31 07:19] LABS: BASOPHILS 0.1 % (0-2); EOSINOPHILS 0.6 % (0-7); HEMATOCRIT 32.9 % (42.0-54.0); IMMATURE GRANULOCYTES 0.7 % (0-5); LYMPHOCYTES 12.6 % (15-50); MCH 32.1 pg (26.0-34.0); MCHC 33.4 g/dL (31.0-37.0); MCV 95.9 fL (80.0-100.0); MEAN PLATELET VOLUME 9.3 fL (7.4-10.4); MONOCYTES 7.9 % (2-11); NEUTROPHILS 78.1 % (40-80); PLATELET COUNT 386 10x3/uL (130-400); RBC 3.43 10x6/uL (4.20-6.10); RDW 14.3 % (11.5-14.5); WBC 14.5 10x3/uL (4.8-10.8)
[2017-03-31 07:37] LABS: CALC OSMOLALITY 274 mosm/kg (275-300); CALCIUM 7.5 mg/dL (8.5-10.1); CARBON DIOXIDE 26.4 mmol/L (21.0-32.0); CHLORIDE - SERUM 104 mmol/L (98-107); CREATININE - SERUM 0.8 mg/dL (0.6-1.3); GLUCOSE 93 mg/dL (74-106); POTASSIUM - SERUM 3.5 mmol/L (3.5-5.1); SODIUM 138 mmol/L (136-145); UREA NITROGEN 9 mg/dL (7-18); eGFR NON AFRICAN AMERICAN > 90 mL/min (90-120)
[2017-03-31 08:00] VITALS: BP 97/57
--- NOTE | 2017-03-31 08:00 | NUR ---
PT EATING BREAKFAST, DENIES NEEDS.
--- NOTE | 2017-03-31 09:38 | NUR ---
PT AM MEDS ADMINISTERED. PT ASSISTED TO BR. PT SITTING UP IN WC, DENIES FURTHER NEEDS. WCTM.
--- NOTE | 2017-03-31 12:00 | NUR ---
PT EATING LUNCH, DENIES NEEDS. WCTM.
--- NOTE | 2017-03-31 14:36 | NUR ---
PATIENT ADMITTED TO REHAB FROM ACUTE FLOOR. DR. CHRISTIANSON IS HIS PCP, HE USES [facility] THE [facility] FOR HIS PHARMACY NEEDS. DISCHARGE PLANS ARE FOR PATIENT TO RETURN HOME. HE HAS GOOD FRIENDS AND FAMILY SUPPORT.
--- NOTE | 2017-03-31 16:00 | NUR ---
PT SIGNED BED ALARM WAIVER. PT EASILY MOVES FROM BED TO WHEELCHAIR WITHOUT ASSISTANCE AND IS ABLE TO MOVE AROUND THE ROOM EASILY. SMILEY.
--- NOTE | 2017-03-31 20:20 | NUR ---
PATIENT UP TO BR IN W/C. DENIES NEEDS.
[2017-03-31 22:00] VITALS: BP 133/76
--- NOTE | 2017-03-31 22:00 | NUR ---
PAINTED PATIENT'S CLIPPED ABDOMINAL INCISION WITH BETADINE. APPLIED THICK GAUZE PAD COVERED BY ABD PAD AND SECURED WITH MEDIPORE TAPE PATIENT IS NOW HAVING MODERATE SEROUS DRAINAGE FROM DISTAL 1.5" OF INCISION RESULTING FROM HIM SNEEZING WHILE SEATED ON COMMODE RECENTLY. ASSESSMENT NOW COMPLETE. PATIENT WAS PROVIDED FRESH SCRUBS. HS MEDS WERE GIVEN TO PATIENT, WHO TOOK THEM A FEW AT AT TIME WITHOUT DIFFICULTY. DENIES FURTHER NEEDS.
--- NOTE | 2017-04-01 00:10 | NUR ---
RESTING IN BED, EYES CLOSED.
--- NOTE | 2017-04-01 02:00 | NUR ---
IN BED, EYES CLOSED. WAS UP TO BR IN THE 0 TIME FRAME. APPEARS COMFORTABLE.
--- NOTE | 2017-04-01 04:45 | NUR ---
UP AT NURSING STATION IN W/C. REQUESTED AND WAS PROVIDED A FRESH CUP OF COFFEE.
--- NOTE | 2017-04-01 07:21 | NUR ---
RESTING QUIETLY IN BED. EYES CLOSED. CALL LIGHT IN REACH.
--- NOTE | 2017-04-01 08:00 | NUR ---
PATIENT IS ALERT/ORIENT X4. WEARS GLASSES, IS HARD OF HEARING. CALL LIGHT WITHIN REACH. PATIENT HAS SIGNED A BED/CHAIR ALARM WAVIOR. VOICES NO NEEDS AT THIS TIME.
--- NOTE | 2017-04-01 09:00 | NUR ---
PHYSICAL THERAPIST WORKING WITH PATIENT. HELPING PATIENT WITH A SHOWER. LINENS TO BED CHAGED WHILE PATIENT IN SHOWER.
[2017-04-01 09:25] VITALS: BP 145/81
--- NOTE | 2017-04-01 09:52 | NUR ---
PATIENT IN REHAB ROOM. WORKING WITH PHYSICAL THERAPIST. DENIES NAY PAIN/DISC AT THIS TIME
--- NOTE | 2017-04-01 14:53 | NUR ---
PATIENT SITTING UP IN WHEELCHAIR AT BEDSIDE. HAS MULTIPLE VISITORS IN HIS ROOM. VOICES NO NEEDS
--- NOTE | 2017-04-01 18:45 | NUR ---
UP IN W/C AT BEDSIDE. DENIES CURRENT NEEDS.
[2017-04-01 20:27] VITALS: BP 100/56
--- NOTE | 2017-04-01 21:10 | NUR ---
ASSESSMENT AND HS MEDS COMPLETE. HELD LISINOPRIL 5MG SCHEDULED DOSE FOR LOW BP OF 104/56.
--- NOTE | 2017-04-01 22:00 | NUR ---
C/O COLD. ADDED A FOLDED BLANKET TO HIS COVERS.
--- NOTE | 2017-04-01 23:50 | NUR ---
UP IN BR FOR TOILETING.
--- NOTE | 2017-04-02 02:15 | NUR ---
RESTING QUIETLY ON RIGHT SIDE, SNORING.
--- NOTE | 2017-04-02 04:45 | NUR ---
RESTING IN BED, EYES CLOSED. SNORING.
--- NOTE | 2017-04-02 06:05 | NUR ---
PATIENT UP IN W/C AT BEDSIDE. GAVE HIM FRESH CUP OF COFFEE. DENIES FURTHER NEEDS.
--- NOTE | 2017-04-02 07:03 | NUR ---
RESTING QUIETLY IN BED. NO S/S DISTRESS OR NEEDS. CALL LIGHT IN REACH.
[2017-04-02 08:00] VITALS: BP 116/48
--- NOTE | 2017-04-02 09:08 | NUR ---
PATIENT IS ALERT/ORIENT X4. HAS SINGED BED/CAIR ALARM WAVIOR. WEARS GLASSES. HARD OF HEARING. CALL LIGHT WITHIN REACH. VOICES NO NEEDS AT THIS TIME.
--- NOTE | 2017-04-02 13:42 | NUR ---
PATIENT HAS MULTIPLE VISITORS IN ROOM. VOICES NO NEEDS AT THIS TIME
[2017-04-02 19:35] VITALS: BP 103/53
--- NOTE | 2017-04-02 19:35 | NUR ---
ASSESSMENT PER FLOW SHEET, VS OBTAINED, PT REPORTS FLATUS, BM TODAY AND VOIDING WITH NO DIFFICULTY, PT DENIES NEEDS OR PAIN AT THIS TIME, BED IN LOW POSITION, SIDE RAILS X 2, CALL LIGHT IN REACH
--- NOTE | 2017-04-02 20:20 | NUR ---
PT RESTING WITH EYES CLOSED, RESP QUIET, NO DISTRESS NOTED, LEFT UNDISTURBED AT THIS TIME
--- NOTE | 2017-04-02 21:11 | NUR ---
PT RESTING WITH EYES CLOSED, AROUSES TO SOFT VERBAL STIMULATION, ADM MEDS PO PER MD ORDERS WITH FRESH H20 AND APPLESAUCE, PT UP TO BR VIA WC PER SELF, VOIDED AND HAD BM, PT REQUESTS TO SIT IN WC FOR A BIT, CALL LIGHT IN REACH
--- NOTE | 2017-04-02 22:00 | NUR ---
PT BACK TO BED PER SELF, DENIES FURTHER NEEDS OR PAIN AT THIS TIME
--- NOTE | 2017-04-03 00:30 | NUR ---
PT RESTING WITH EYES CLOSED, RESP QUIET, NO DISTRESS NOTED, LEFT UNDISTURBED AT THIS TIME
--- NOTE | 2017-04-03 02:40 | NUR ---
PT RESTING WITH EYES CLOSED, RESP QUIET, NO DISTRESS NOTED, LEFT UNDISTURBED AT THIS TIME
--- NOTE | 2017-04-03 04:18 | NUR ---
PT CONSTRUCTION TECH LIGHT, PT REQUESTED AND SERVED FRESH H20, DENIES FURTHER NEEDS
--- NOTE | 2017-04-03 04:27 | NUR ---
PT DIRECTOR OF ENGINEERING LIGHT, PT REPORTS PART OF ABD DRESSING FELL OFF, LOWER PART OF ABD DRESSING UNSTUCK, 4X4'S FELL OUT, INC WITH ERICH CDI WITH NO DRAINAGE NOTED, CLEAN 4X4'S PLACED AND RETAPED, PT DENIES FURTHER NEEDS OR PAIN AT THIS TIME
--- NOTE | 2017-04-03 06:36 | NUR ---
PT AWAKE, SITTING UP IN WC, REQUESTED AND SERVED COFFEE, DENIES FURTHER NEEDS OR PAIN
--- NOTE | 2017-04-03 06:45 | NUR ---
SHIFT REPORT TO DAY SHIFT
[2017-04-03 06:46] LABS: CALC OSMOLALITY 273 mosm/kg (275-300); CALCIUM 8.1 mg/dL (8.5-10.1); CARBON DIOXIDE 24.1 mmol/L (21.0-32.0); CHLORIDE - SERUM 106 mmol/L (98-107); CREATININE - SERUM 0.6 mg/dL (0.6-1.3); GLUCOSE 106 mg/dL (74-106); SODIUM 138 mmol/L (136-145); UREA NITROGEN 6 mg/dL (7-18); eGFR NON AFRICAN AMERICAN > 90 mL/min (90-120)
[2017-04-03 07:19] LABS: BASOPHILS 0.1 % (0-2); HEMATOCRIT 30.3 % (42.0-54.0); HEMOGLOBIN 10.2 g/dL (13.5-17.5); IMMATURE GRANULOCYTES 0.6 % (0-5); LYMPHOCYTES 23.3 % (15-50); MCHC 33.7 g/dL (31.0-37.0); MEAN PLATELET VOLUME 9.9 fL (7.4-10.4); MONOCYTES 9.8 % (2-11); NEUTROPHILS 64.2 % (40-80); PLATELET COUNT 374 10x3/uL (130-400); RBC 3.19 10x6/uL (4.20-6.10); RDW 14.6 % (11.5-14.5); WBC 9.4 10x3/uL (4.8-10.8)
[2017-04-03 07:31] VITALS: BP 104/57
--- NOTE | 2017-04-03 08:05 | NUR ---
PT AM MEDS ADMINISTERED. PT DENIES NEEDS. WCTM.
--- NOTE | 2017-04-03 12:42 | NUR ---
PT EATING LUNCH, DENIES NEEDS. WCTM.
--- NOTE | 2017-04-03 17:54 | NUR ---
PT EATING DINNER, DENIES NEEDS. WCTM.
[2017-04-03 18:48] VITALS: BP 117/50
--- NOTE | 2017-04-03 19:30 | NUR ---
PT SITTING UP IN W/C, INQUIRED ABOUT BEING ABLE TO LEAVE THE UNIT TO USE HIS CELL PHONE. PT ENCOURAGED TO GO OUT IN HALLWAY NEAR LARGER WINDOWS FOR BETTER TAPE DECK INSTALLER. PT CONVERSIVE, DENIES ANY OHTER NEEDS.
--- NOTE | 2017-04-03 21:30 | NUR ---
PT STATES HE FEELS BETTER THAT HE WAS ABLE TO PROPEL HIS W/C OUT TO THE FRONT DOORS AND OBTAIN SOME FRESH AIR AND USE HIS CELL PHONE TO MAKE A COUPLE OF CALLS. PT STATES HE WAS CONCERNED THAT HE WOULDN'T GET HIS STRENGTH BACK, FEELS MORE OPTIMISTIC AFTER THERAPY TODAY. PT CONVERSIVE, DENIES PAIN. DRESSING CHANGED, MIN AMOUNT OF DRAINAGE ON DRESSING.
--- NOTE | 2017-04-04 01:13 | NUR ---
PT RESTING QUIETLY IN ROOM, LYING SUPINE POSITION, NO S/S OF ACUTE DISTRESS.
--- NOTE | 2017-04-04 06:15 | NUR ---
PT RESTING QUIETLY, NO S/S OF ACUTE DISTRESS.
[2017-04-04 07:40] VITALS: BP 95/52
--- NOTE | 2017-04-04 08:11 | NUR ---
PT SITTING UP IN WC EATING BREAKFAST, DENIES NEEDS. WCTM.
--- NOTE | 2017-04-04 12:00 | NUR ---
PT EATING LUNCH, DENIES NEEDS. WCTM.
--- NOTE | 2017-04-04 15:29 | NUR ---
PT IN THERAPY. TOLERATING WELL. WCTM.
--- NOTE | 2017-04-04 17:56 | NUR ---
PT SITTING UP IN WC EATING DINNER, DENIES NEEDS. WCTM.
[2017-04-04 19:00] VITALS: BP 107/49
--- NOTE | 2017-04-04 19:15 | NUR ---
IN BED, AWAKE. DENIES NEEDS.
--- NOTE | 2017-04-04 21:30 | NUR ---
UP IN W/C AT BEDSIDE. NO COMPLAINTS AT THIS TIME.
--- NOTE | 2017-04-04 22:20 | NUR ---
ASSESSMENT AND HS MEDS COMPLETE. HELD SCHEDULED LISINOPRIL FOR LOW BP OF 107/49. DENIES CURRENT NEEDS.
--- NOTE | 2017-04-05 00:40 | NUR ---
PATIENT UP TO BR COMMODE VIA W/C. NO COMPLAINTS AT THIS TIME.
--- NOTE | 2017-04-05 02:45 | NUR ---
RESTING IN BED, EYES CLOSED. APPEARS COMFORTABLE.
--- NOTE | 2017-04-05 04:40 | NUR ---
RESTING IN BED, EYES CLOSED.
--- NOTE | 2017-04-05 06:00 | NUR ---
CHANGED DRESSING TO DISTAL HALF OF ABDOMINAL INCISION. YELLOW CLOUDY SEROUS DRAINAGE NOTED ON PREVIOUS DRESSING. PAINTED INCISION WITH BETADINE AND APPLIED THICK PAD OF 4X4'S TOPPED WITH BORDERED GAUZE DRESSING WITH EDGES REINFORCED WITH MEDIPORE TAPE. DENIES FURTHER NEEDS.
[2017-04-05 06:31] LABS: BASOPHILS 0.3 % (0-2); EOSINOPHILS 1.8 % (0-7); HEMATOCRIT 30.9 % (42.0-54.0); HEMOGLOBIN 10.2 g/dL (13.5-17.5); IMMATURE GRANULOCYTES 0.3 % (0-5); LYMPHOCYTES 25.6 % (15-50); MCH 32.1 pg (26.0-34.0); MEAN PLATELET VOLUME 9.3 fL (7.4-10.4); MONOCYTES 11.8 % (2-11); NEUTROPHILS 60.2 % (40-80); PLATELET COUNT 388 10x3/uL (130-400); RBC 3.18 10x6/uL (4.20-6.10); RDW 14.8 % (11.5-14.5); WBC 8.9 10x3/uL (4.8-10.8)
[2017-04-05 06:34] LABS: MCV 97.2 fL (80.0-100.0)
[2017-04-05 07:00] LABS: CALC OSMOLALITY 282 mosm/kg (275-300); CALCIUM 8.1 mg/dL (8.5-10.1); CARBON DIOXIDE 28.1 mmol/L (21.0-32.0); CHLORIDE - SERUM 106 mmol/L (98-107); CREATININE - SERUM 0.8 mg/dL (0.6-1.3); GLUCOSE 94 mg/dL (74-106); POTASSIUM - SERUM 3.9 mmol/L (3.5-5.1); SODIUM 143 mmol/L (136-145); UREA NITROGEN 6 mg/dL (7-18); eGFR NON AFRICAN AMERICAN > 90 mL/min (90-120)
--- NOTE | 2017-04-05 07:31 | NUR ---
RESTING QUIETLY IN BED. EYES CLOSED. NO S/S DISTRESS OR NEEDS. CALL LIGHT IN REACH.
[2017-04-05 07:55] VITALS: BP 109/54
--- NOTE | 2017-04-05 10:04 | NUR ---
PATIENT IS ALERT/ORIENT X4. HAS SIGNED BED/CHAIR ALARM WAVIOR. AMBLUTLATES WITH WHEELED WALKER WITH STEADY GAIT. DENIES ANY PAIN/DISC AT THIS TIME
--- NOTE | 2017-04-05 10:53 | NUR ---
Nutrition Follow Up: Pt was in therapy at the time of RD visit. Interview deferred. Pt is eating 92% meal avg on a regular diet. No new wt to assess. +BM 04/04/17. Meds and labs reviewed. Rec continue current diet. RD following.
--- NOTE | 2017-04-05 14:45 | NUR ---
CARE TEAM MEETING: PATIENT DOING WELL IN THERAPY. MET WITH PATIENT AND HE SAY HIS DAUGHTER WILL BE HERE MONDAY AND HE WILL BE READY FOR DISCHARGE HOME MONDAY. HE WOULD LIKE WHEELCHAIR FROM [employer] FOR HOME HOME USE. HE WILL ALSO ASK AROUND TO WHICH HOME HEALTH HE WILL USE. HIS PCP IS DR. CHRISTIANSON. WILL CONTINUE TO FOLLOW WITH PATIENT AND WILL VISIT WITH HIM AND HIS DAUGHTER.
--- NOTE | 2017-04-05 17:17 | NUR ---
COREG HELD. B/P 115/58
[2017-04-05 19:00] VITALS: BP 100/43
--- NOTE | 2017-04-05 19:30 | NUR ---
IN BED AFTER RECENT TRIP TO BR. DENIES NEEDS.
--- NOTE | 2017-04-05 21:30 | NUR ---
ASSESSMENT AND HS MEDS COMPLETE. HELD SCHEDULED LISINOPRIL FOR BP OF 100/49.
--- NOTE | 2017-04-05 22:20 | NUR ---
AWAKE. ASKED FOR ASSIST TO REMOVE ONE OF HIS BLANKETS. SAYS HE IS TOO WARM, OTHERWISE, DENIES NEEDS.
--- NOTE | 2017-04-06 00:30 | NUR ---
PATIENT AWAKE. DENIES NEEDS. SAYS HE WAS JUST UP TO THE BR TO URINATE.
--- NOTE | 2017-04-06 02:00 | NUR ---
UP TO BR COMMODE. NO COMPLAINTS AT THIS TIME.
--- NOTE | 2017-04-06 04:20 | NUR ---
PATIENT UP IN W/C AT BEDSIDE. SAYS HE JUST RETURNED FROM THE BR. ALSO REPORTS THAT HE IS APPLYING LOTION TO CRACKED SKIN ON FINGERS WHICH WAS PROVIDED HIM BY CINTIA KAUR WHILE I WAS AT LUNCH.
--- NOTE | 2017-04-06 06:00 | NUR ---
UP IN W/C, DRESSED. DENIES NEEDS.
--- NOTE | 2017-04-06 07:35 | NUR ---
PT SITTING UP IN WC READING NEWSPAPER AND WAITING FOR BREAKFAST. PT DENIES NEEDS. WCTM.
[2017-04-06 08:00] VITALS: BP 94/45
--- NOTE | 2017-04-06 08:40 | NUR ---
PT AM MEDS ADMINISTERED. PT DENIES NEEDS. WCTM.
--- NOTE | 2017-04-06 10:15 | NUR ---
PT IN THERAPY, TOLERATING WELL, DENIES NEEDS. WCTM.
--- NOTE | 2017-04-06 12:05 | NUR ---
PT SITTING UP IN WC WAITING FOR LUNCH, DENIES NEEDS. WCTM.
--- NOTE | 2017-04-06 15:00 | NUR ---
PT IN THERAPY, TOLERATING WELL. WCTM.
--- NOTE | 2017-04-06 17:32 | NUR ---
DRESSING TO ABD CHANGED. MINIMAL YELLOW/CLEAR DRAINIAGE NOTED. PT DENEIS NEEDS. WCTM.
[2017-04-06 19:21] VITALS: BP 110/59
--- NOTE | 2017-04-06 19:30 | NUR ---
IN BED, HOB UP 45 DEGREES. DENIES NEEDS.
--- NOTE | 2017-04-06 20:00 | NUR ---
UP IN W/C AT BEDSIDE. DENIES NEEDS.
--- NOTE | 2017-04-06 22:05 | NUR ---
ASSESSMENT AND HS MEDS COMPLETE. HELD LISINOPRIL FOR BP OF 110/59 AND BECAUSE PATIENT REFUSED IT ATTRIBUTING HIS LOW BP'S TO IT.
--- NOTE | 2017-04-07 | NUR ---
UP TO BR IN W/C. NO COMPLAINTS AT THIS TIME.
--- NOTE | 2017-04-07 02:10 | NUR ---
PATIENT AWAKE. SAYS HE JUST RETURNED TO BED AFTER TRIP TO COMMODE. DENIES NEEDS.
--- NOTE | 2017-04-07 04:45 | NUR ---
PATIENT AWAKE. SAYS HE JUST RETURNED FROM TOILETING ABOUT 15 MINUTES AGO.
--- NOTE | 2017-04-07 06:00 | NUR ---
RESTING QUIETLY IN BED, EYES CLOSED.
--- NOTE | 2017-04-07 07:30 | NUR ---
PT SITTING UP IN WC WAITING FOR BREAKFAST, DENIES NEEDS. WCTM.
[2017-04-07 08:00] VITALS: BP 107/56
--- NOTE | 2017-04-07 08:25 | NUR ---
PT AM MEDS ADMINISTERED. PT DENIES NEEDS AT THIS TIME.
--- NOTE | 2017-04-07 09:45 | NUR ---
PT ERICH REMOVED. STERI STRIPS PLACED OVER INCISION WITH ADHESIVE. BORDER DRESSING APPLIED OVER SITE. PT INSTRUCTIONS GIVEN ON WOUND CARE AND SIGNS/SYMPTOMS OF INFECTION. PT VERBALIZES UNDERSTANDING.
--- NOTE | 2017-04-07 10:10 | NUR ---
PATIENT DISCHARGING HOME WITH FAMILY TODAY.[facility] WILL FOLLOW WITH PATIENT. PATIENT REQUEST [facility] FOR DME NEEDS, WHEELCHAIR AND SHOWER CHAIR ORDERED PER PATIENT REQUEST. DR. CHRISTIANSON 04/13/17 @ 3:40, DR. HEATH 04/20/17 @ 12:50. ORDERS HAVE BEEN FAXED TO HOME HEALTH AND [facility]. CONFORMATION RECIEVED. PATIENT CHOICE FORM FOR HOME HEALTH AND [facility] FORM SIGNED, EXPLAINED AND FILED IN CHART. DISCHARGE PLAN AND DISCHARGE MED REC FAXED TO [facility] AT DR. FAN OFFICE.
--- NOTE | 2017-04-07 10:30 | NUR ---
PT DISCHARGED HOME WITH FAMILY. ESCORTED TO VEHICLE BY STAFF VIA WHEELCHAIR. PT MEDS AND DISCHARGE INSTRUCTIONS REVIEWED. PT REFUSES MEDS CALLED IN TO PHARMACY STATING THAT HE GETS A 90 DAY SUPPLY THROUGH [facility] AND HE ALREADY HAS PLENTY.
== END 2017-04-07 11:09 | disposition home health service (06) | DRG 948 ==
LOC: D.REHAB 17:52
PROVIDERS: ADMIT Emergency Medicine
DX: R53.81 Other malaise (principal); K56.60 Unspecified intestinal obstruction; N39.0 Urinary tract infection, site not specified; R10.9 Unspecified abdominal pain; K21.9 Gastro-esophageal reflux disease without esophagitis; I10 Essential (primary) hypertension; Z95.0 Presence of cardiac pacemaker; R55 Syncope and collapse; K46.9 Unspecified abdominal hernia without obstruction or gangrene

== ENCOUNTER 2018-03-31 17:40 | Inpatient (IN) | payer MEDICARE, OTHER ==
[~2018-03-31] VITALS: Ht 177.8 cm; Wt 86.2 kg
--- NOTE | ~2018-03-31 | HP ---
PATIENT: AARON AGRAWAL MEDICAL RECORD: [id number] ACCOUNT: [id number] LOCATION:[id number] : 35 ADMISSION DATE: 03/31/18 HISTORY AND PHYSICAL EXAMINATION DATE OF ADMISSION: 03/31/2018 CHIEF COMPLAINT: Abdominal pain. HISTORY OF PRESENT ILLNESS: This is an 83-year-old white male who had acute onset of generalized abdominal pain, some nausea, not too much vomiting. He has a large ventral hernia. He was admitted here a year ago with similar complaints, found to have bowel obstruction and had surgery by Dr. Cuello for this. His symptoms are the same now and he is admitted for further evaluation. PAST MEDICAL AND SURGICAL HISTORY: Again, he was admitted to [place] in March of last year with abdominal pain and underwent exploratory laparotomy with partial small bowel resection and lysis of adhesions by Dr. Cuello. He has coronary artery disease, reflux, history of constipation, sick sinus syndrome, BPH and arthritis. PAST SURGICAL HISTORY: Laparoscopic adhesiolysis with conversion to exploratory laparotomy and adhesiolysis on 03/21/2017. There was no small bowel resection. He has undergone coronary stents. He has had knee surgery, cataract repair, pacemaker placement, tonsillectomy. ALLERGIES: DEMEROL. MEDICATIONS: Home medications include tamsulosin 0.4 mg twice a day, carvedilol 3.125 mg twice a day, simvastatin 20 mg at bedtime, sotalol 80 mg at bedtime, aspirin 81 mg once a day, Flonase nasal spray as needed, vitamin D3 1000 units once a day, multivitamin once a day, vitamin E 400 units once a day, finasteride 5 mg once a day, lisinopril 5 mg once a day. SOCIAL HISTORY: He lives alone. He is retired. HABITS: Never smoked. He drinks occasional alcohol. No illicit drug use. FAMILY HISTORY: Father at 91 of old age, he had hypertension. Mother at 70, she had coronary artery disease and lymphoma. REVIEW OF SYSTEMS: GENERAL: No major weight changes. HEENT: He has occasional runny nose. RESPIRATORY: No history of asthma, emphysema, or COPD. CARDIAC: He sees Dr. Yarbrough. He has a history of coronary artery disease, sick sinus syndrome. GASTROINTESTINAL: See above history with his last year's laparotomy for lysis of adhesions. GENITOURINARY: He has BPH. MUSCULOSKELETAL: He has arthritic aches and pains. NEUROLOGIC: Denies migraines or seizures. PSYCHIATRIC: Denies depression or melancholia. PHYSICAL EXAMINATION: HISTORY AND PHYSICAL [id number] TANJAAARON Smith VITAL SIGNS: Temperature 99.0, pulse 79, respirations 16, blood pressure is 97/52, O2 saturations 92%. GENERAL: He is awake and alert. He is in no acute distress at this time. NG tube is in place. HEENT: Otherwise is unremarkable. NECK: Supple. No bruit. HEART: Regular rate and rhythm without murmur. LUNGS: Clear. ABDOMEN: He has a large ventral hernia, mild generalized tenderness. EXTREMITIES: No edema. LABORATORY DATA: CBC with a white count of 14,500, hemoglobin 13.8, hematocrit 40.9. Basic metabolic panel is all unremarkable. Liver enzymes are unremarkable. CT abdomen and pelvis shows high-grade mid small-bowel obstruction, diverticulosis, stable 1.5 cm adrenal adenoma, abdominal aortic aneurysm that is slightly larger than before. ASSESSMENT: 1. Small-bowel obstruction. 2. History of sick sinus syndrome, on sotalol. 3. Hypertension. 4. History of heart disease. PLAN: General surgery has been consulted, they will be following. He was given IV fluid, NG tube to low intermittent wall suction. He may have ice chips. We will talk to pharmacy about sotalol. Other tests and procedures as warranted. TRANSINT:[id number] Voice Confirmation ID: [id number] DOCUMENT ID: [id number] HAL LOCO MD at 1440 CC: [id number] DICTATION DATE: 04/01/18 1316 PROCUREMENT COST COORDINATOR: 04/01/18 1351 ADM IN [facility] [address] [place] [address]
[2018-03-31 19:28] LABS: BASOPHILS 0.1 % (0-2); EOSINOPHILS 1.4 % (0-7); HEMATOCRIT 40.9 % (42.0-54.0); HEMOGLOBIN 13.8 g/dL (13.5-17.5); IMMATURE GRANULOCYTES 0.3 % (0-5); LYMPHOCYTES 13.5 % (15-50); MCH 32.6 pg (26.0-34.0); MCHC 33.7 g/dL (31.0-37.0); MCV 96.7 fL (80.0-100.0); MEAN PLATELET VOLUME 9.5 fL (7.4-10.4); MONOCYTES 10.1 % (2-11); NEUTROPHILS 74.6 % (40-80); RBC 4.23 10x6/uL (4.20-6.10); RDW 14.5 % (11.5-14.5); WBC 14.5 10x3/uL (4.8-10.8)
[2018-03-31 19:29] LABS: PLATELET COUNT 225 10x3/uL (130-400)
[2018-03-31 19:46] LABS: ALBUMIN 4.1 g/dL (3.4-5.0); ALKALINE PHOSPHATASE 69 U/L (46-116); ALT (SGPT) 18 U/L (10-68); BILIRUBIN - TOTAL 0.72 mg/dL (0.2-1.3); CALC OSMOLALITY 279 mosm/kg (275-300); CALCIUM 9.1 mg/dL (8.5-10.1); CARBON DIOXIDE 30.8 mmol/L (21.0-32.0); CHLORIDE - SERUM 100 mmol/L (98-107); CREATININE - SERUM 0.8 mg/dL (0.6-1.3); GLUCOSE 117 mg/dL (74-106); POTASSIUM - SERUM 3.9 mmol/L (3.5-5.1); PROTEIN - SERUM 7.8 g/dL (6.4-8.2); SODIUM 139 mmol/L (136-145); UREA NITROGEN 15 mg/dL (7-18); eGFR NON AFRICAN AMERICAN > 90 mL/min (90-120)
[2018-03-31 21:34] VITALS: BP 140/66
[2018-04-01 04:43] VITALS: BP 133/66; BMI 27.3
[2018-04-01 05:28] VITALS: BP 118/61
[2018-04-01 09:23] VITALS: BP 97/52
[2018-04-01 12:48] VITALS: BP 111/58
[2018-04-01 17:13] VITALS: BP 115/59
[2018-04-01 22:51] VITALS: BP 107/59
[2018-04-02 04:39] VITALS: BP 111/56
[2018-04-02 08:36] VITALS: BP 113/59
[2018-04-02 08:49] LABS: BASOPHILS 0.3 % (0-2); EOSINOPHILS 2.8 % (0-7); HEMATOCRIT 38.8 % (42.0-54.0); HEMOGLOBIN 12.9 g/dL (13.5-17.5); IMMATURE GRANULOCYTES 0.3 % (0-5); LYMPHOCYTES 30.1 % (15-50); MCH 32.4 pg (26.0-34.0); MCHC 33.2 g/dL (31.0-37.0); MCV 97.5 fL (80.0-100.0); MEAN PLATELET VOLUME 9.7 fL (7.4-10.4); MONOCYTES 17.1 % (2-11); NEUTROPHILS 49.4 % (40-80); PLATELET COUNT 194 10x3/uL (130-400); RBC 3.98 10x6/uL (4.20-6.10); RDW 14.5 % (11.5-14.5)
[2018-04-02 08:51] LABS: WBC 7.3 10x3/uL (4.8-10.8)
[2018-04-02 10:10] VITALS: Ht 177.8 cm; Wt 86.2 kg
[2018-04-02 12:24] VITALS: BP 117/61
[2018-04-02 16:14] VITALS: BP 126/61
[2018-04-02 19:39] VITALS: BP 107/59
[2018-04-02 23:40] VITALS: BP 113/55
[2018-04-03 06:16] VITALS: BP 110/61
[2018-04-03 06:41] LABS: BASOPHILS 0.2 % (0-2); EOSINOPHILS 3.2 % (0-7); HEMATOCRIT 36.9 % (42.0-54.0); HEMOGLOBIN 12.6 g/dL (13.5-17.5); IMMATURE GRANULOCYTES 0.2 % (0-5); LYMPHOCYTES 31.3 % (15-50); MCH 33.2 pg (26.0-34.0); MCHC 34.1 g/dL (31.0-37.0); MCV 97.1 fL (80.0-100.0); MEAN PLATELET VOLUME 9.9 fL (7.4-10.4); MONOCYTES 14.7 % (2-11); NEUTROPHILS 50.4 % (40-80); PLATELET COUNT 217 10x3/uL (130-400); RDW 14.4 % (11.5-14.5)
[2018-04-03 06:43] LABS: WBC 9.2 10x3/uL (4.8-10.8)
[2018-04-03 06:53] LABS: CALC OSMOLALITY 280 mosm/kg (275-300); CALCIUM 8.3 mg/dL (8.5-10.1); CARBON DIOXIDE 28.9 mmol/L (21.0-32.0); CHLORIDE - SERUM 106 mmol/L (98-107); CREATININE - SERUM 0.7 mg/dL (0.6-1.3); GLUCOSE 108 mg/dL (74-106); POTASSIUM - SERUM 3.5 mmol/L (3.5-5.1); SODIUM 141 mmol/L (136-145); UREA NITROGEN 9 mg/dL (7-18); eGFR NON AFRICAN AMERICAN > 90 mL/min (90-120)
[2018-04-03] MEDS ORDERED: GAVILAX510 GM PO (08:08)
[2018-04-03 08:54] VITALS: BP 127/67
== END 2018-04-03 11:50 | disposition home or self-care (01) | DRG 395 ==
LOC: D.ER 17:40 → D.MS 21:53
PROVIDERS: Family Medicine
PROC: 0D9670Z Drainage of Stomach with Drainage Device, Via Natural or Artificial Opening (ICD-10-PCS; principal; 2018-04-01)
DX: K43.0 Incisional hernia with obstruction, without gangrene (principal); I10 Essential (primary) hypertension; I25.10 Atherosclerotic heart disease of native coronary artery without angina pectoris; K21.9 Gastro-esophageal reflux disease without esophagitis; N40.0 Benign prostatic hyperplasia without lower urinary tract symptoms; M19.90 Unspecified osteoarthritis, unspecified site; L40.9 Psoriasis, unspecified; Z95.0 Presence of cardiac pacemaker

== ENCOUNTER 2018-11-28 17:00 | Inpatient (IN) | payer MEDICARE, OTHER ==
[~2018-11-28] VITALS: Ht 177.8 cm; Wt 91.2 kg
[~2018-11-28 17:00] MED LIST changes: +GAVILAX510 GM PO
--- NOTE | 2018-11-28 17:10 | NUR ---
TRAUMA BAND [id number]
--- NOTE | 2018-11-28 18:07 | NUR ---
PT LEAVING THE ED VIA STRETCHER, NO SIGNS OF DISTRESS NOTED.
--- NOTE | 2018-11-28 19:00 | NUR ---
HAND-OFF REPORT GIVEN TO SY GARCIA
[2018-11-28 19:04] LABS: BASOPHILS 0.2 % (0-2); EOSINOPHILS 2.2 % (0-7); HEMATOCRIT 33.6 % (42.0-54.0); HEMOGLOBIN 11.2 g/dL (13.5-17.5); IMMATURE GRANULOCYTES 0.3 % (0-5); LYMPHOCYTES 16.1 % (15-50); MCH 32.3 pg (26.0-34.0); MCHC 33.3 g/dL (31.0-37.0); MCV 96.8 fL (80.0-100.0); MEAN PLATELET VOLUME 9.4 fL (7.4-10.4); MONOCYTES 7.3 % (2-11); NEUTROPHILS 73.9 % (40-80); PLATELET COUNT 207 10x3/uL (130-400); RBC 3.47 10x6/uL (4.20-6.10); RDW 14.3 % (11.5-14.5); WBC 13.5 10x3/uL (4.8-10.8)
[2018-11-28 19:13] LABS: INR 1.09 (0.85-1.17); PROTIME 13.6 SECONDS (11.6-15.0)
[2018-11-28 19:19] LABS: ALBUMIN 3.6 g/dL (3.4-5.0); ALKALINE PHOSPHATASE 58 U/L (46-116); ALT (SGPT) 20 U/L (10-68); BILIRUBIN - TOTAL 0.53 mg/dL (0.2-1.3); CALC OSMOLALITY 275 mosm/kg (275-300); CALCIUM 8.5 mg/dL (8.5-10.1); CARBON DIOXIDE 27.9 mmol/L (21.0-32.0); CHLORIDE - SERUM 102 mmol/L (98-107); CREATININE - SERUM 0.8 mg/dL (0.6-1.3); GLUCOSE 131 mg/dL (74-106); POTASSIUM - SERUM 4.1 mmol/L (3.5-5.1); PROTEIN - SERUM 6.9 g/dL (6.4-8.2); SODIUM 136 mmol/L (136-145); UREA NITROGEN 19 mg/dL (7-18); eGFR NON AFRICAN AMERICAN > 90 mL/min (90-120)
--- NOTE | 2018-11-28 21:45 | NUR ---
RECIEVED TO ROOM VIA LAURENCHER FROM ER. ALERT.ORIENTED. SLING INTACT TO LUE. DISFORMITY NOTED TO SHOULDER.SL TO RFA WITHOUT REDNESS OR EDEMA NOTED. ORIENTED TO ROOM. CL IN REACH. FALL PRECAUTIONS IN PLACE.
[2018-11-29] VITALS (7 sets, daily range): BP systolic 100–134; BP diastolic 50–74; Ht 177.8 cm; Wt 91.2 kg
--- NOTE | 2018-11-29 04:49 | NUR ---
PT IN BED IN LOW FOWLERS POSITION. REPIRATIONS EVEN AND UNLABORED. VITAL SIGNS STABLE AND AFEBRILE. NO VISUAL CUES OF DISTRESS NOTED. DENIES ANY OTHER NEEDS AT THIS TIME. BED LOW, SIDE RAILS UP X2. CALL LIGHT IN REACH. WILL CONTINUE TO MONITOR.
--- NOTE | 2018-11-29 15:56 | MORECARE ---
CASE MANAGEMENT DISCHARGE SUMMARY PATIENT: AARON AGRAWAL UNIT: [id number] ADM DATE: 11/28/18 AGE: 83 : 35 SEX: M ROOM/BED: D.2210 AUTHOR: PAMELA EVANS PHYSICIAN: REFERRING PHYSICIAN: JEN CHRISTIANSON MD DATE OF SERVICE: 11/29/18 Discharge Plan Patient Name: AARON AGRAWAL [facility] [facility] 1935 Planned Disposition: Home or Self Care Anticipated Discharge Date: Discharge Date: Expected LOS: Initial Reviewer: [email or web address] Initial Review Date: 11/28/2018 Generated: 11/29/18 4:56 pm DCPIA - Discharge Planning Initial Assessment Updated by [id number]: Faith Ceja on 11/29/18 3:55 pm * Is the patient Alert and Oriented? Yes * How many steps to enter\exit or inside your home? don't use * PCP SAMMY * Pharmacy [facility] * Preadmission Environment Home Alone * ADLs Independent * Equipment Wheelchair * List name and contact numbers for known caregivers / representatives who currently or will assist patient after discharge: NIVIA NAVA (GIRLFRIEND) [phone] * Verbal permission to speak to the caregivers and representatives has been obtained from the patient. Yes * Community resources currently utilized None * Additional services required to return to the preadmission environment? No * Can the patient safely return to the preadmission environment? Yes * Has this patient been hospitalized within the prior 30 days at any hospital? No Patient Name: AARON AGRAWAL Page [id number] at 1556 All edits/amendments must be made on the electronic document DICTATION DATE: 11/29/18 1555 INSTRUMENTATION SPECIALIST: NORA 11/29/18 1555 RPT#: [id number] DC DATE: STATUS: ADM IN [facility] [address] [place] [address] END OF REPORT
--- NOTE | 2018-11-29 16:08 | MORECARE ---
CASE MANAGEMENT DISCHARGE SUMMARY PATIENT: AARON AGRAWAL UNIT: [id number] ADM DATE: 11/28/18 AGE: 83 : 35 SEX: M ROOM/BED: D.2210 AUTHOR: CRISTINA,DOC PHYSICIAN: REFERRING PHYSICIAN: JEN CHRISTIANSON MD DATE OF SERVICE: 11/29/18 Discharge Plan Patient Name: AARON AGRAWAL Facility: [facility]:[place] : 1935 Planned Disposition: Home or Self Care Anticipated Discharge Date: Discharge Date: Expected LOS: Initial Reviewer: [email or web address] Initial Review Date: 11/28/2018 Generated: 11/29/18 5:07 pm Comments DCP- Discharge Planning Updated by [email or web address]: Faith Ceja on 11/29/18 2:[address] Patient Name: AARON AGRAWAL Admission Status: ER Accout number: [id number] Admission Date: 11-28-2018 : 1935 Admission Diagnosis: Attending: JEN CHRISTIANSON Current LOS: 1 Anticipated DC Date: Planned Disposition: Home or Self Care Primary Insurance: MEDICARE A & B Discharge Planning Comments: CM met with patient to complete initial dc planning assessment. CM educated patient on the CM role and verbal consent given by patient to complete assessment. Patient lives at home where he is independent with his care. At discharge patient plans to return home and feels this is a safe discharge. His girlfriend Becka will be his jukebox route driver home. CM discussed availability of home health, rehab services, and medical equipment. Patient has a wheelchair at home, but does not use it. Patient denied known discharge needs at this time. CM will continue to follow and will assist as needed with dc plans/needs. Kineseologist: Faith Ceja DCPIA - Discharge Planning Initial Assessment Updated by [email or web address]: Faith Ceja on 11/29/18 3:55 pm * Is the patient Alert and Oriented? Yes * How many steps to enter\exit or inside your home? don't use * PCP SAMMY * Pharmacy [facility] * Preadmission Environment Home Alone * ADLs Independent * Equipment Wheelchair * List name and contact numbers for known caregivers / representatives who currently or will assist patient after discharge: BECKA NAVA (GIRLFRIEND) [phone] * Verbal permission to speak to the caregivers and representatives has been obtained from the patient. Yes * Community resources currently utilized None * Additional services required to return to the preadmission environment? No * Can the patient safely return to the preadmission environment? Yes * Has this patient been hospitalized within the prior 30 days at any hospital? No Last DP export: 11/29/18 2:56 p Patient Name: AARON AGRAWAL Page [id number] at 1608 All edits/amendments must be made on the electronic document DICTATION DATE: 11/29/181606 SUBSTATION ENGINEER: NORA 11/29/181606 RPT#: [id number] DC DATE: STATUS: ADM IN [facility] [address] [place] [address] END OF REPORT
--- NOTE | 2018-11-29 16:42 | NUR ---
PATIENT WEARING SCD'S. RESTING IN BED. COMPANY IN THE ROOM. NO NEEDS AT THIS TIME
--- NOTE | 2018-11-29 21:30 | NUR ---
A&O X 4, DENIES PAIN AT THIS TIME. STATES HE HAS NASAL SPRAY IN HIS BAG, BUT HASN'T USED IT. LARGE MASS IN ABDOMEN, PT STATES IT IS HIS INTESTINES AND HAS HAD THIS HERNIA FOR A LONG TIME. DENIES NEEDS, WILL CONTINUE TO MONITOR.
--- NOTE | 2018-11-30 03:31 | NUR ---
PT GOT UP TO BSC WITH ASSIST. URINE IS DARK AND FOUL SMELLING. WILL CONTINUE TO MONITOR.
--- NOTE | 2018-11-30 04:54 | NUR ---
I have reviewed this patient and I concur with the Shift Assessment completed by the Licensed Practical Nurse today this shift.
[2018-11-30 05:31] LABS: BASOPHILS 0.3 % (0-2); EOSINOPHILS 2.6 % (0-7); HEMATOCRIT 29.4 % (42.0-54.0); HEMOGLOBIN 9.7 g/dL (13.5-17.5); IMMATURE GRANULOCYTES 0.3 % (0-5); LYMPHOCYTES 26.1 % (15-50); MCH 31.9 pg (26.0-34.0); MCV 96.7 fL (80.0-100.0); MEAN PLATELET VOLUME 9.6 fL (7.4-10.4); MONOCYTES 15.3 % (2-11); NEUTROPHILS 55.4 % (40-80); PLATELET COUNT 190 10x3/uL (130-400); RBC 3.04 10x6/uL (4.20-6.10); RDW 14.5 % (11.5-14.5); WBC 10.4 10x3/uL (4.8-10.8)
[2018-11-30 05:33] VITALS: BP 134/64
[2018-11-30 05:35] LABS: CALC OSMOLALITY 276 mosm/kg (275-300); CALCIUM 7.9 mg/dL (8.5-10.1); CARBON DIOXIDE 27.6 mmol/L (21.0-32.0); CHLORIDE - SERUM 102 mmol/L (98-107); CREATININE - SERUM 0.8 mg/dL (0.6-1.3); GLUCOSE 114 mg/dL (74-106); POTASSIUM - SERUM 3.9 mmol/L (3.5-5.1); SODIUM 137 mmol/L (136-145); UREA NITROGEN 17 mg/dL (7-18); eGFR NON AFRICAN AMERICAN > 90 mL/min (90-120)
[2018-11-30 06:53] LABS: APPEARANCE CLOUDY (CLEAR); BILIRUBIN NEGATIVE (NEGATIVE); COLOR STRAW (YELLOW); GLUCOSE NEGATIVE (NEGATIVE); KETONE NEGATIVE (NEGATIVE); NITRITE NEGATIVE (NEGATIVE); PROTEIN 1+ mg/dL (NEGATIVE); SPECIFIC GRAVITY 1.015 (1.005-1.020); UROBILINOGEN NORMAL (NORMAL)
[2018-11-30 06:54] LABS: BACTERIA MANY /hpf (NONE SEEN); EPITHELIAL CELLS 0-5 /hpf (0-5); WHITE CELLS - URINE >50 /hpf (0-5)
--- NOTE | 2018-11-30 07:45 | NUR ---
PT RESTING IN BED. AROUSED BY VERBAL STIMULI. SLING TO L ARM NOTED. NPO FOR SCHEDULED SX TODAY. DENIES PAIN. NO S/S OF ACUTE DISTRESS. CL IN PLACE.
[2018-11-30 08:54] VITALS: BP 109/55
[2018-11-30 14:04] VITALS: BP 99/60
[2018-11-30 16:58] VITALS: BP 80/54
--- NOTE | 2018-11-30 18:08 | NUR ---
ASSISTED PT TO BSC WITH SLING ON. PT CO OF HAND TINGLING. CAP REFILL >3 SECONDS. PT ABLE TO MOVE ALL FINGERS, RADIAL PULSE NOTED. DENIES PAIN. SWELLING NOTED TO L ARM. APPLIED X2 BAGS OF ICE AND ELEVATED WITH X2 PILLOWS. DENIES PAIN. NO S/S OF ACUTE DISTRESS. CL IN PLACE. GF AT BEDSIDE.
--- NOTE | 2018-11-30 18:40 | NUR ---
SPOKE WITH DR PARDO ABOUT PT BP 78/60.83 POST OP. ORDERS TO CONTINUE TO MONITOR GIVEN AND CALL IF PT BECOMES SYMPTOMATIC. NO S/S OF ACUTE DISTRESS. CL IN PLACE.
--- NOTE | 2018-11-30 19:35 | NUR ---
PT RESTING IN BED. ALERT AND ORIENTED. NO SIGNS OF DISTRESS. BREATHING EVEN AND UNLABORED. PT STATES NO PROBLEMS AT THIS TIME. IV SITE RT FA DRESSING CLEAN DRY AND ITNACT. NO SIGNS OF INFECTION. LT ARM DRESSING CLEAN DRY AND INTACT. SLING ON. ICE ON. SOME SWELLING PRESENT. PT CAN FEEL AND MOVE FINGERS. 2LO2 NASAL CANNULA. BOWEL SOUNDS ACTIVE. ABD FIRM AND DISTENDED PT STATES IT IS FROM MULTIPLE ABD SURGERIES IN PAST. NO LOWER LEG SWELLING PRESENT. WILL CONTINUE PLAN OF CARE. CALL LIGHT IN REACH. YI ALARM ON. YELLOW GOWN AND ARM BAND ON. BED RAILS UP X3.
[2018-11-30 19:54] VITALS: BP 90/57
[2018-12-01 00:13] VITALS: BP 90/48
--- NOTE | 2018-12-01 05:01 | NUR ---
PT RESTING IN BED EYES CLOSED. NO SIGNS OF DISTRESS. BREATHING EVEN AND UNLABORED. WILL CONTINUE PLAN OF CARE. CALL LIGHT IN REACH.
[2018-12-01 05:37] VITALS: BP 91/48
[2018-12-01 05:47] LABS: BASOPHILS 0.1 % (0-2); CALC OSMOLALITY 275 mosm/kg (275-300); CALCIUM 7.5 mg/dL (8.5-10.1); CARBON DIOXIDE 22.3 mmol/L (21.0-32.0); CHLORIDE - SERUM 104 mmol/L (98-107); CREATININE - SERUM 0.9 mg/dL (0.6-1.3); EOSINOPHILS 0 % (0-7); GLUCOSE 147 mg/dL (74-106); HEMATOCRIT 20.9 % (42.0-54.0); IMMATURE GRANULOCYTES 0.2 % (0-5); LYMPHOCYTES 14.5 % (15-50); MCH 32.1 pg (26.0-34.0); MCV 97.2 fL (80.0-100.0); MEAN PLATELET VOLUME 9.5 fL (7.4-10.4); MONOCYTES 14.2 % (2-11); PLATELET COUNT 182 10x3/uL (130-400); POTASSIUM - SERUM 4.1 mmol/L (3.5-5.1); RDW 14.4 % (11.5-14.5); SODIUM 136 mmol/L (136-145); UREA NITROGEN 15 mg/dL (7-18); eGFR NON AFRICAN AMERICAN 85 mL/min (90-120)
[2018-12-01 06:06] LABS: RBC 2.15 10x6/uL (4.20-6.10)
--- NOTE | 2018-12-01 06:06 | NUR ---
I have reviewed this patient and I concur with the Shift Assessment completed by the Licensed Practical Nurse today this shift.
[2018-12-01 06:08] LABS: HEMOGLOBIN 6.9 g/dL (13.5-17.5)
--- NOTE | 2018-12-01 08:06 | NUR ---
ASSISTED PT TO BSC PER PT REQUEST. REFUSE URINAL. ASSISTED TO CHAIR.L ARM ELEVATED ON X1 PILLOW. ABLE TO MOVE FINGERS. PULSE NOTED. SWELLING TO L ARM NOTED. CAP REFILL> 3 SECONDS. SPOKE WITH PT ABOUT RECIEVING 2 UNITS OF PRBC. PT AGREED. NO S/S OF ACUTE DISTRESS. CL IN PLACE.
[2018-12-01 09:57] VITALS: BP 102/55
--- NOTE | 2018-12-01 10:39 | NUR ---
SPOKE WITH DR CHRISTIANSON ABOUT PT CO OF PAIN AND ONLY OPTION MORPHINE. NORCO 5/325MG Q4PRN. NO S/S OF ACUTE DISTRESS. CL IN PLACE.
--- NOTE | 2018-12-01 15:59 | NUR ---
IV LEAKING.IV TO L AC DC WITH TIP IN TACT.
--- NOTE | 2018-12-01 18:16 | NUR ---
PT SITTING UP IN BED WATCHING TV WITH GF. NO S/S OF ACUTE DISTRESS. CL IN PLACE. L ARM UP ON PILLOW.
--- NOTE | 2018-12-01 19:51 | NUR ---
SITTING UP ON BEDSIDE, DENIES NEEDS, BED LOWEST POSITION, CALL LIGHT IN REACH, SCD'S ON, IV TO RH PATENT, A&O, PULSE TO L WRIST WEAK, CAPILLARY REFILL<3, L HAND WARM TO TOUCH, WILL CONTINUE POC
[2018-12-01 21:18] VITALS: BP 94/49
[2018-12-02 00:48] VITALS: BP 100/54
--- NOTE | 2018-12-02 03:00 | NUR ---
I have reviewed this patient and I concur with the Shift Assessment completed by the Licensed Practical Nurse today this shift.
--- NOTE | 2018-12-02 03:00 | NUR ---
I have reviewed this patient and I concur with the Shift Assessment completed by the Licensed Practical Nurse today this shift.
[2018-12-02 04:50] VITALS: BP 102/49
[2018-12-02 06:53] LABS: BASOPHILS 0.2 % (0-2); EOSINOPHILS 1.8 % (0-7); HEMATOCRIT 24.4 % (42.0-54.0); HEMOGLOBIN 8.2 g/dL (13.5-17.5); IMMATURE GRANULOCYTES 0.3 % (0-5); LYMPHOCYTES 27.4 % (15-50); MCH 31.5 pg (26.0-34.0); MCHC 33.6 g/dL (31.0-37.0); MEAN PLATELET VOLUME 9.2 fL (7.4-10.4); MONOCYTES 14.3 % (2-11); PLATELET COUNT 189 10x3/uL (130-400); RDW 15.7 % (11.5-14.5); WBC 10.2 10x3/uL (4.8-10.8)
[2018-12-02 06:55] LABS: MCV 93.8 fL (80.0-100.0)
[2018-12-02 07:20] LABS: CALC OSMOLALITY 280 mosm/kg (275-300); CALCIUM 7.7 mg/dL (8.5-10.1); CARBON DIOXIDE 24.3 mmol/L (21.0-32.0); CHLORIDE - SERUM 106 mmol/L (98-107); CREATININE - SERUM 0.9 mg/dL (0.6-1.3); GLUCOSE 158 mg/dL (74-106); POTASSIUM - SERUM 3.7 mmol/L (3.5-5.1); SODIUM 139 mmol/L (136-145); UREA NITROGEN 13 mg/dL (7-18); eGFR NON AFRICAN AMERICAN 85 mL/min (90-120)
--- NOTE | 2018-12-02 07:57 | NUR ---
PT SITTING UP IN CHAIR. REQUEST COFFEE. NO S/S OF ACUTE DISTRESS. CL IN PLACE.
[2018-12-02 09:45] VITALS: BP 120/59
--- NOTE | 2018-12-02 09:54 | NUR ---
CALLED SAM ALVAREZ FOR RICKY [employer]ALGO, WENT TO SUPPLY CLOSET AND STATED, "WE NO LONGER USE THEM".
[2018-12-02 13:24] VITALS: BP 102/48
--- NOTE | 2018-12-02 17:35 | NUR ---
PT ARM INCREASE SWELLING. WEAK PULSE. BRUISING ON HAND AND ARM NOTED. CALLED DR SORTO SINCE PT IS UNABLE TO USE ANY BLOOD THINNERS. NEW ORDER FOR L VENOUS DOPPLER TO BE DONE STAT. CALL DR SORTO WITH RESULTS. PT SITTING UP ON SIDE OF THE BED EATING DINNER. ASSITED PT IN OPENING UP CONDIMENTS. DENIES PAIN. NO S/S OF ACUTE DISTRESS. CL IN PLACE.
[2018-12-02 18:08] VITALS: BP 103/47
--- NOTE | 2018-12-02 19:21 | NUR ---
SPOKE WITH DR SORTO ABOUT UNOFFICIAL RESULT OF THE VENOUS DOPPLER TO JOSÉ MIGUEL. FLOW WAS GOOD. DR SORTO ORDERED PT ARM ELEVATED ABOVE HEART, KPAD TO LUE, MOVE FINGERS. CALLED CLAUDIO VARGAS WHO WAS UNABLE TO LOCATE SIMONEMEAGANRI. CHECKED DIRTY SUPPLY ROOM AND CLEAN ROOM. NO MACHINE FOUND. ELEVATED LUE X3 PILLOWS AND EDUCATED PT ON MOVING FINGERS. NO S/S OF ACUTE DISTRESS. CL IN PLACE.
[2018-12-02 20:00] VITALS: BP 123/62
--- NOTE | 2018-12-02 21:24 | NUR ---
RECEIVED REPORT, ASSUMED CARE, SITTING UP ON BEDSIDE, DENIES NEEDS, BED LOWEST POSITION, CALL LIGHT IN REACH, SCD'S ON, IV TO RH PATENT, A&O, PULSE TO L WRIST WEAK, CAPILLARY REFILL<3, L HAND WARM TO TOUCH, WILL CONTINUE POC
--- NOTE | 2018-12-02 22:29 | NUR ---
KPAD PLACED ON LEFT ARM
[2018-12-03] VITALS: BP 119/61
[2018-12-03 03:00] VITALS: BP 121/65
--- NOTE | 2018-12-03 04:31 | NUR ---
I have reviewed this patient and I concur with the Shift Assessment completed by the Licensed Practical Nurse today this shift.
--- NOTE | 2018-12-03 07:30 | NUR ---
PATIENT ADMITTED FOR LEFT HUMERUS FX AND IS 3 DAYS POST ORIF. PATIENT ANTICIPATES DISCHARGE TODAY, DRESSING C/D/I, WITH NO NEEDS VOICED AT THIS TIME
[2018-12-03 08:00] VITALS: BP 123/61
[2018-12-03 09:08] LABS: BASOPHILS 0.2 % (0-2); EOSINOPHILS 2.8 % (0-7); HEMOGLOBIN 8.3 g/dL (13.5-17.5); IMMATURE GRANULOCYTES 0.6 % (0-5); LYMPHOCYTES 24.2 % (15-50); MCH 31.6 pg (26.0-34.0); MCHC 33.2 g/dL (31.0-37.0); MCV 95.1 fL (80.0-100.0); MEAN PLATELET VOLUME 9.1 fL (7.4-10.4); MONOCYTES 12.4 % (2-11); NEUTROPHILS 59.8 % (40-80); RBC 2.63 10x6/uL (4.20-6.10); RDW 15.2 % (11.5-14.5); WBC 9.9 10x3/uL (4.8-10.8)
[2018-12-03 09:09] LABS: PLATELET COUNT 229 10x3/uL (130-400)
[2018-12-03 12:00] VITALS: BP 120/59
--- NOTE | 2018-12-03 13:46 | MORECARE ---
CASE MANAGEMENT DISCHARGE SUMMARY PATIENT: AARON AGRAWAL UNIT: [id number] ADM DATE: 11/28/18 AGE: 83 : 35 SEX: M ROOM/BED: D.2210 AUTHOR: CRISTINADOC PHYSICIAN: REFERRING PHYSICIAN: JEN CHRISTIANSON MD DATE OF SERVICE: 12/03/18 Discharge Plan Patient Name: AARON AGRAWAL Facility: [facility]:[place] : 1935 Planned Disposition: Home or Self Care Anticipated Discharge Date: Discharge Date: Expected LOS: Initial Reviewer: [email or web address] Initial Review Date: 11/28/2018 Generated: 12/03/18 2:46 pm Comments DCP- Discharge Planning Updated by [id number]: Faith Ceja on 12/03/18 12:[address] PATIENT DISCHARGING HOME TODAY WITH [employer], [facility] SIGNED AND PLACED IN CHART SPOKE WITH [facility] SERVED AND EXPLAINED. CM WILL CONTINUE TO FOLLOW AND ASSIST WITH DC PLANNING DCP- Discharge Planning Updated by [id number]: Faith Ceja on 11/29/18 2:[address] Patient Name: AARON AGRAWAL Admission Status: ER Accout number: [id number] Admission Date: 11-28-2018 : 1935 Admission Diagnosis: Attending: JEN CRHISTIANSON Current LOS: 1 Anticipated DC Date: Planned Disposition: Home or Self Care Primary Insurance: MEDICARE A & B Discharge Planning Comments: CM met with patient to complete initial dc planning assessment. CM educated patient on the CM role and verbal consent given by patient to complete assessment. Patient lives at home where he is independent with his care. At discharge patient plans to return home and feels this is a safe discharge. His girlfriend Becka will be his school bus driver/mechanic home. CM discussed availability of home health, rehab services, and medical equipment. Patient has a wheelchair at home, but does not use it. Patient denied known discharge needs at this time. CM will continue to follow and will assist as needed with dc plans/needs. Power Nut Runner Operator: Faith Ceja DCPIA - Discharge Planning Initial Assessment Updated by [id number]: Faith Ceja on 11/29/18 3:55 pm * Is the patient Alert and Oriented? Yes * How many steps to enter\exit or inside your home? don't use * PCP SAMMY * Pharmacy [facility] * Preadmission Environment Home Alone * ADLs Independent * Equipment Wheelchair * List name and contact numbers for known caregivers / representatives who currently or will assist patient after discharge: BECKA NAVA (GIRLFRIEND) [phone] * Verbal permission to speak to the caregivers and representatives has been obtained from the patient. Yes * Community resources currently utilized None * Additional services required to return to the preadmission environment? No * Can the patient safely return to the preadmission environment? Yes * Has this patient been hospitalized within the prior 30 days at any hospital? No Coverage Notice Reviewer: [email or web address] Bee Ceja Notice Issued Date-Time: 12/03/2018 13:20 Notice Type: IM Discharge Notice Notice Delivered To: Patient Relationship to Patient: Regulatory Services Consultant Name: Delivery Method: HAND - Hand Delivered Helen Days: Prior Verbal Notification: Recipient Understood Notice: Yes Recipient Signature: Yes Med Rec Note Co-signed by Attending: Coverage Notice Comment: Last DP export: 11/29/18 3:07 p Patient Name: AARON AGRAWAL Page 95637 at 1346 All edits/amendments must be made on the electronic document DICTATION DATE: 12/03/18 1345 CHIEF NURSE EXECUTIVE: NORA 12/03/18 1345 RPT#: [id number] DC DATE: STATUS: ADM IN [facility] [address] [place] [address] END OF REPORT
--- NOTE | 2018-12-03 13:53 | MORECARE ---
CASE MANAGEMENT DISCHARGE SUMMARY PATIENT: AARON AGRAWAL UNIT: [id number] ADM DATE: 11/28/18 AGE: 83 : 35 SEX: M ROOM/BED: D.2210 AUTHOR: CRISTINADOC PHYSICIAN: REFERRING PHYSICIAN: JEN CHRISTIANSON MD DATE OF SERVICE: 12/03/18 Discharge Plan Patient Name: AARON AGRAWAL Facility: [facility]:[place] : 1935 Planned Disposition: Home or Self Care Anticipated Discharge Date: Discharge Date: Expected LOS: Initial Reviewer: [email or web address] Initial Review Date: 11/28/2018 Generated: 12/03/18 2:53 pm Comments DCP- Discharge Planning Updated by [email or web address]: Faith Ceja on 12/03/18 12:[address] PATIENT DISCHARGING HOME TODAY WITH [employer], [facility] SIGNED AND PLACED IN CHART SPOKE WITH [facility] SERVED AND EXPLAINED. CM WILL CONTINUE TO FOLLOW AND ASSIST WITH DC PLANNING DCP- Discharge Planning Updated by [email or web address]: Faith Ceja on 11/29/18 2:[address] Patient Name: AARON AGRAWAL Admission Status: ER Accout number: [id number] Admission Date: 11-28-2018 : 1935 Admission Diagnosis: Attending: JEN CHRISTIANSON Current LOS: 1 Anticipated DC Date: Planned Disposition: Home or Self Care Primary Insurance: MEDICARE A & B Discharge Planning Comments: CM met with patient to complete initial dc planning assessment. CM educated patient on the CM role and verbal consent given by patient to complete assessment. Patient lives at home where he is independent with his care. At discharge patient plans to return home and feels this is a safe discharge. His girlfriend Becka will be his local combination truck driver home. CM discussed availability of home health, rehab services, and medical equipment. Patient has a wheelchair at home, but does not use it. Patient denied known discharge needs at this time. CM will continue to follow and will assist as needed with dc plans/needs. Fur Puller: Faith Ceja DCPIA - Discharge Planning Initial Assessment Updated by [id number]: Faith Ceja on 11/29/18 3:55 pm * Is the patient Alert and Oriented? Yes * How many steps to enter\exit or inside your home? don't use * PCP SAMMY * Pharmacy [facility] * Preadmission Environment Home Alone * ADLs Independent * Equipment Wheelchair * List name and contact numbers for known caregivers / representatives who currently or will assist patient after discharge: BECKA NAVA (GIRLFRIEND) [phone] * Verbal permission to speak to the caregivers and representatives has been obtained from the patient. Yes * Community resources currently utilized None * Additional services required to return to the preadmission environment? No * Can the patient safely return to the preadmission environment? Yes * Has this patient been hospitalized within the prior 30 days at any hospital? No External Providers [facility] Next Contact Date: Service Request Date: Service Type: Resolution: Reviewer: Comments: Coverage Notice Reviewer: [email or web address] Bee Ceja Notice Issued Date-Time: 12/03/2018 13:20 Notice Type: IM Discharge Notice Notice Delivered To: Patient Relationship to Patient: Farm Assistant Name: Delivery Method: HAND - Hand Delivered Helen Days: Prior Verbal Notification: Recipient Understood Notice: Yes Recipient Signature: Yes Med Rec Note Co-signed by Attending: Coverage Notice Comment: Last DP export: 12/03/18 12:46 p Patient Name: AARON AGRAWAL Page 10906 at 1353 All edits/amendments must be made on the electronic document DICTATION DATE: 12/03/18 1353 REMELT WORKER: NORA 12/03/18 1353 RPT#: [id number] DC DATE: STATUS: ADM IN [facility] [address] [place] [address] END OF REPORT
--- NOTE | 2018-12-03 14:41 | NUR ---
DRESSING CHANGED TO LEFT SHOULDER, IV REMOVED FROM RIGHT HAND WITH CATH INTACT AND NO REDNESS OR EDEMA AT SITE. DISCHARGE INSTRUCTIONS GIVEN TO PATIENT WITH UNDERSTANDING VOICED. PATIENT TAKEN BY WHEELCHAIR TO PRIVATE CAR WITH ASSISTANCE FROM VOLUNTEER
--- NOTE | 2018-12-03 15:27 | MORECARE ---
CASE MANAGEMENT DISCHARGE SUMMARY PATIENT: AARON AGRAWAL UNIT: [id number] ADM DATE: 11/28/18 AGE: 83 : 35 SEX: M ROOM/BED: D.2210 AUTHOR: CRISTINADOC PHYSICIAN: REFERRING PHYSICIAN: JEN CHRISTIANSON MD DATE OF SERVICE: 12/03/18 Discharge Plan Patient Name: AARON AGRAWAL Facility: [facility]:[place] : 1935 Planned Disposition: Home or Self Care Anticipated Discharge Date: Discharge Date: 12/03/2018 Expected LOS: 0 Initial Reviewer: [email or web address] Initial Review Date: 11/28/2018 Generated: 12/03/18 4:27 pm Comments DCP- Discharge Planning Updated by [email or web address]: Faith Ceja on 12/03/18 12:[address] PATIENT DISCHARGING HOME TODAY WITH [facility], [facility] SIGNED AND PLACED IN CHART SPOKE WITH ELIZABETH. [place] SERVED AND EXPLAINED. CM WILL CONTINUE TO FOLLOW AND ASSIST WITH DC PLANNING DCP- Discharge Planning Updated by [email or web address]: Faith Ceja on 11/29/18 2:[address] Patient Name: AARON AGRAWAL Admission Status: ER Accout number: [id number] Admission Date: 11-28-2018 : 1935 Admission Diagnosis: Attending: JEN CHRISTIANSON Current LOS: 1 Anticipated DC Date: Planned Disposition: Home or Self Care Primary Insurance: MEDICARE A & B Discharge Planning Comments: CM met with patient to complete initial dc planning assessment. CM educated patient on the CM role and verbal consent given by patient to complete assessment. Patient lives at home where he is independent with his care. At discharge patient plans to return home and feels this is a safe discharge. 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 CM discussed availability of home health, rehab services, and medical equipment. Patient has a wheelchair at home, but does not use it. Patient denied known discharge needs at this time. CM will continue to follow and will assist as needed with dc plans/needs. Ultrasonic Tester: Faith Ceja DCPIA - Discharge Planning Initial Assessment Updated by [email or web address]: Faith Ceja on 11/29/18 3:55 pm * Is the patient Alert and Oriented? Yes * How many steps to enter\exit or inside your home? don't use * PCP SAMMY * [facility] * Preadmission Environment Home Alone * ADLs Independent * Equipment Wheelchair * List name and contact numbers for known caregivers / representatives who currently or will assist patient after discharge: BECKA NAVA (GIRLFRIEND) [phone] * Verbal permission to speak to the caregivers and representatives has been obtained from the patient. Yes * Community resources currently utilized None * Additional services required to return to the preadmission environment? No * Can the patient safely return to the preadmission environment? Yes * Has this patient been hospitalized within the prior 30 days at any hospital? No Coverage Notice Reviewer: [email or web address] Bee Ceja Notice Issued Date-Time: 12/03/2018 13:20 Notice Type: IM Discharge Notice Notice Delivered To: Patient Relationship to Patient: [employer] Name: Delivery Method: HAND - Hand Delivered Helen Days: Prior Verbal Notification: Recipient Understood Notice: Yes Recipient Signature: Yes Med Rec Note Co-signed by Attending: Coverage Notice Comment: Last DP export: 12/03/18 12:53 p Patient Name: AARON AGRAWAL Page [id number] at 1527 All edits/amendments must be made on the electronic document DICTATION DATE: 12/03/181526 FIRE REGULATOR: NORA 12/03/181526 RPT#: [id number] DC DATE:12/03/18 STATUS: DIS IN [facility] [address] [place] [address] END OF REPORT
== END 2018-12-03 14:43 | disposition home health service (06) | DRG 493 ==
LOC: D.ER 17:00 → D.MS 19:43
PROVIDERS: Emergency Medicine; Orthopaedic Surgery; ADMIT Family Medicine; ATTEND Family Medicine
PROC: 0PSG04Z Reposition Left Humeral Shaft with Internal Fixation Device, Open Approach (ICD-10-PCS; principal; 2018-11-30 09:00)
DX: S42.352A Displaced comminuted fracture of shaft of humerus, left arm, initial encounter for closed fracture (principal); D62 Acute posthemorrhagic anemia; X58.XXXA Exposure to other specified factors, initial encounter; I10 Essential (primary) hypertension; Z87.891 Personal history of nicotine dependence

== ENCOUNTER 2019-05-20 19:04 | Emergency (ER) | payer MEDICARE, OTHER ==
[~2019-05-20] VITALS: Ht 177.8 cm; Wt 88.6 kg
[2019-05-20 19:08] VITALS: Ht 177.8 cm; Wt 88.6 kg
[2019-05-20 20:10] LABS: BASOPHILS 0.3 % (0-2); HEMATOCRIT 33.1 % (42.0-54.0); HEMOGLOBIN 11.4 g/dL (13.5-17.5); IMMATURE GRANULOCYTES 0.3 % (0-5); LYMPHOCYTES 36.4 % (15-50); MCH 32.5 pg (26.0-34.0); MCHC 34.4 g/dL (31.0-37.0); MCV 94.3 fL (80.0-100.0); MEAN PLATELET VOLUME 9.2 fL (7.4-10.4); MONOCYTES 12.6 % (2-11); NEUTROPHILS 45.4 % (40-80); PLATELET COUNT 223 10x3/uL (130-400); RBC 3.51 10x6/uL (4.20-6.10); RDW 15.1 % (11.5-14.5); WBC 8.6 10x3/uL (4.8-10.8)
[2019-05-20 20:18] LABS: APTT 31.7 SECONDS (22.8-39.4); INR 1.08 (0.85-1.17); PROTIME 13.5 SECONDS (11.6-15.0)
[2019-05-20 20:31] LABS: ALBUMIN 3.6 g/dL (3.4-5.0); ALKALINE PHOSPHATASE 72 U/L (46-116); ALT (SGPT) 21 U/L (10-68); BILIRUBIN - TOTAL 0.35 mg/dL (0.2-1.3); CALC OSMOLALITY 275 mosm/kg (275-300); CALCIUM 8.7 mg/dL (8.5-10.1); CARBON DIOXIDE 26.2 mmol/L (21.0-32.0); CHLORIDE - SERUM 102 mmol/L (98-107); CREATININE - SERUM 0.9 mg/dL (0.6-1.3); POTASSIUM - SERUM 4.2 mmol/L (3.5-5.1); SODIUM 137 mmol/L (136-145); UREA NITROGEN 19 mg/dL (7-18); eGFR NON AFRICAN AMERICAN 85 mL/min (90-120)
[2019-05-20 20:36] LABS: GLUCOSE 100 mg/dL (74-106)
[2019-05-20 20:52] LABS: CKMB 1.2 U/L (0.0-3.6); CREATINE KINASE 57 UL (21-232); MAGNESIUM - SERUM 1.8 mg/dL (1.8-2.4); TROPONIN-I < 0.017 ng/mL (0.000-0.060)
[2019-05-20 21:04] LABS: APPEARANCE CLEAR (CLEAR); BILIRUBIN NEGATIVE (NEGATIVE); COLOR YELLOW (YELLOW); GLUCOSE NEGATIVE (NEGATIVE); KETONE NEGATIVE (NEGATIVE); NITRITE NEGATIVE (NEGATIVE); PROTEIN NEGATIVE (NEGATIVE); UROBILINOGEN NORMAL (NORMAL)
[2019-05-20 21:05] LABS: RED CELLS - URINE 0-5 /hpf (0-5); WHITE CELLS - URINE 0-5 /hpf (0-5)
[2019-05-20 21:06] LABS: BACTERIA FEW /hpf (NONE SEEN)
[2019-05-20 22:21] VITALS: BP 130/75
== END 2019-05-20 22:28 | disposition home or self-care (01) ==
LOC: D.ER 19:04
PROVIDERS: Family Medicine
DX: R10.30 Lower abdominal pain, unspecified (principal); I10 Essential (primary) hypertension; M79.605 Pain in left leg; R60.0 Localized edema

== ENCOUNTER 2019-09-19 11:10 | Emergency (ER) | payer MEDICARE, OTHER ==
[~2019-09-19] VITALS: Ht 177.8 cm; Wt 87.3 kg
[2019-09-19 11:49] VITALS: BP 134/71; Ht 177.8 cm; Wt 87.3 kg
== END 2019-09-19 13:40 | disposition home or self-care (01) ==
LOC: D.ER 11:10
DX: M79.605 Pain in left leg (principal); I10 Essential (primary) hypertension